=== PATIENT | female | born 1950 | race Caucasian/White ===

== ENCOUNTER → 2019-06-06 17:30 | Outpatient (CLI) | payer MEDICARE, BC, OTHER, SELFPAY ==
--- NOTE | 2019-06-06 | DI.MRI.S_ITS ---
PROCEDURE: MR LUMBAR SPINE WO CON INDICATIONS: Posterior right leg radicular pain TECHNIQUE: Noncontrast sagittal T1 spin echo and T2 fast echo, sagittal STIR, axial T1 and T2 fast spin echo through the lumbar spine. In cases with scoliosis, additional coronal T2 fast spin echo may be performed. COMPARISON: [facility] [place], [place], XR LUMBAR SPINE WITH OLBIQUES PLUS FLEXION EXTENSION, 05/31/2019, 10:02. FINDINGS: Image quality: Excellent. Alignment and Curvature: There is normal bony alignment. Bone Marrow: Marrow is of normal overall signal. No acute vertebral body compression fractures. Spinal Cord: Conus medullaris terminates at the T12-L1 disc level. Visualized cord demonstrates normal signal and size. Paraspinous Soft Tissues: No paravertebral masses. T12-L1: Loss of disc signal and slight loss of disc height. Mild, diffuse disc bulge. No central stenosis. No neural foraminal narrowing. No neural compression. L1-L2: Normal appearance. L2-L3: Normal appearance. L3-L4: Loss of the signal. Mild diffuse disc bulge. Mild bilateral facet hypertrophy. No central stenosis. No neural foraminal narrowing. No neural compression. L4-L5: Loss of the signal. Mild, diffuse disc bulge. Mild bilateral facet hypertrophy. No central stenosis. No neural foraminal narrowing. No neural compression. L5-S1: Loss of the signal. Mild, diffuse disc bulge. Mild bilateral facet hypertrophy. No central stenosis. No neural foraminal narrowing. No neural compression. Fissure noted in the posterior annulus. IMPRESSION: 1. Multilevel degenerative disc disease. 2. Multilevel facet arthropathy. 3. No central stenosis. 4. No neural foraminal narrowing. 5. No neural compression. 6. L5-S1 disc annulus fissure Dictated by: Brittny Moody MD, PhD on 06/07/2019 at 10:51 Approved by: Brittny Moody MD, PhD on 06/07/2019 at 10:59
== END ==
PROVIDERS: Visit Provider Physical Medicine & Rehabilitation
DX: M54.5 Low back pain (principal); M51.16 Intervertebral disc disorders with radiculopathy, lumbar region
CPT/HCPCS: 72148

== ENCOUNTER 2021-03-19 09:45 | Outpatient (RCR) | payer MEDICARE, BC, OTHER, SELFPAY ==
--- NOTE | 2021-01-02 12:18 | PT.OIE ---
Current Diagnoses Spondylosis without myelopathy or radiculopathy, lumbar region (01/07/21) Radiculopathy, lumbar region (01/07/21) Visit Care Team Role Provider Type Kateryna Courtney PA-C Primary Care Provider Non-Staff Specialty: Medical Address: [address], [place], [address] Email: Ruben Wilks MD Attending Provider Physician Referring Provider Specialty: Orthopedics Address: [address] [place] [address], [id number] Email: [email or web address] Physical Therapy Initial Evaluation PT-OP-A Visit Information Start: 01/05/21 07:59 Freq: Status: Active Protocol: Document 01/02/21 15:15 HH (Rec: 01/05/21 08:04 HH [email or web address]) Out-Patient Physical Therapy Visit Information Visit Information Visit Type Initial Evaluation Visit Start Time 15:15 Visit Stop Time 16:00 Total Visit Minutes 45 Visit Number 08/12 Number of ORGANIZATIONAL PSYCHOLOGIST Visits 0 Evaluation Information Evaluation Date 01/02/21 Precautions Precautions Osteopenia depression PT-OP-B Current Condition Start: 01/05/21 07:59 Freq: Status: Active Protocol: Document 01/02/21 15:15 HH (Rec: 01/05/21 08:04 HH [email or web address]) Current Condition History of Current Condition Onset Date >2 years ago Current Complaints chronic LBP, radiating R posterior leg pain, difficulty with acitvitiy. History of Current Condition Danette is a 70 yo female here for her chronic LBP with radiating R posterior leg pain started 2 years ago. LBP= 3, R posterior leg pain =4 which mostly gets worse with activity. Walking a couple miles tends to aggravate her pain badly the next day. Recovering from a bend over position/ sit <>stand also bother her. She also noticed she has been putting more weight on L LE while ambulating as well. Pt had X- ray at her lumbar in 2019 which shows multilevel degenerative disc disease, multilevel facet arthropathy and L5-S1 disc annulus fissure . She attempted a course of PT at [facility] but she stated it only helps mangaging her symptoms slightly. She recalled she mostly did core stabilization exercises there. Prior Treatments and Tests 06/07/2019 lumbar x-ray 1. Multilevel degenerative disc disease. 2. Multilevel facet arthropathy. 3. No central stenosis. 4. No neural foraminal narrowing. 5. No neural compression. 6. L5-S1 disc annulus fissure Personal Factors Other Personal Factors That May Effect depression Therapy/Recovery PT-OP-C Subjective Start: 01/05/21 07:59 Freq: Status: Active Protocol: Document 01/02/21 15:15 HH (Rec: 01/06/21 14:11 [email or web address]) OP-PT Pain Assessment Location R leg Pain Location Details posterior thigh and calf,. Intensity 4 Scale Used Numeric (0 - 10) Description Radiating Frequency Frequent Pain Aggravating Factors Standing,Walking Pain Alleviating Factors Inactivity LBP Pain Location Details L4-S1 region Intensity 3 Scale Used Numeric (0 - 10) Description Acute Frequency Frequent Pain Aggravating Factors Position,Activity,Exercise, Walking Pain Alleviating Factors Inactivity PT-OP-F Manual Assessment Start: 01/05/21 07:59 Freq: Status: Active Protocol: Document 01/02/21 15:15 HH (Rec: 01/07/21 12:18 [email or web address]) Manual Assessments Soft Tissue Assessment Soft Tissue Mobility Assessment hypertonicity at SIJ region and R glute max and pirformis. PT-OP-G Mobility & Gait Start: 01/05/21 07:59 Freq: Status: Active Protocol: Document 01/02/21 15:15 HH (Rec: 01/07/21 12:18 [email or web address]) OP Gait Assessment Comments Gait Comments dec stance phase on RLE, mild trendelenburg sign with L hip drop during R stance phase. Stair Climbing Evaluation Comments Stair Climbing Comments step over pattern with 1UE support to ascend ; step to pattern with 1 UE support to descend PT-OP-H Neuro Start: 01/05/21 07:59 Freq: Status: Active Protocol: Document 01/02/21 15:15 HH (Rec: 01/07/21 12:18 [email or web address]) Sensation Evaluation Gross Sensation Gross Sensation WNL Deep Tendon Reflex & Clonus Assessment Deep Tendon Reflex Bilateral Achilles Deep Tendon Reflex 2+ Normal Bilateral Patellar Deep Tendon Reflex 2+ Normal PT-OP-K Range of Motion Start: 01/05/21 07:59 Freq: Status: Active Protocol: Document 01/02/21 15:15 HH (Rec: 01/07/21 12:18 [email or web address]) Lumbar Spine Range of Motion Lumbar Spine Active Degrees Comments toe touch test= hands on floor , lack of lumbar segmental flexion SB to R= 19 with stretching sensation at R L4L5 region SB to L= 19 with stretching sensation at R L4L5 region extension= shoulders clear heels, pressure discomfort at lumbar R quadrant test= significant pain at R L4L5 region L quadrant test= -ve Hip Goniometric Range of Motion Hip Right Active Straight Leg Raise 90 Comments slight radiating posterior thigh pain with ASLR Left Active Straight Leg Raise 90 PT-OP-L Special Tests Start: 01/05/21 07:59 Freq: Status: Active Protocol: Document 01/02/21 15:15 HH (Rec: 01/07/21 12:18 [email or web address]) Special Tests Lumbar Spine Special Tests R quadrant test Test Results +ve R Comments radiating calf pain Slump Test Results +ve R Comments radiating calf pain Hip Special Tests Straight Leg Raise Test Results +ve R Comments radiating calf pain PT-OP-M Strength Start: 01/05/21 07:59 Freq: Status: Active Protocol: Document 01/02/21 15:15 HH (Rec: 01/07/21 12:18 [email or web address]) Hip Strength Hip Manual Muscle Testing Right Flexion (L2) 4 Good Extension (S1) 4 Good Abduction 4- Good- Adduction 4+ Good+ Left Flexion (L2) 4+ Good+ Extension (S1) 4+ Good+ Abduction 4+ Good+ Adduction 4+ Good+ Knee Strength Knee Manual Muscle Testing Right Flexion (S2) 5 Normal Extension (L3) 5 Normal Left Flexion (S2) 5 Normal Extension (L3) 5 Normal PT-OP-Q Treatments Start: 01/05/21 07:59 Freq: Status: Active Protocol: Document 01/02/21 15:15 HH (Rec: 01/07/21 12:18 [email or web address]) Therapeutic Exercises Supine Exercises piriformis stretch Side right Reps/Minutes 15 sec x 5 Comments for hEP PT-OP-T Assessment and Plan Start: 01/05/21 07:59 Freq: Status: Active Protocol: Document 01/02/21 15:15 HH (Rec: 01/07/21 12:18 HH [email or web address]) Physical Therapy Assessment Rehab Potential Rehabilitation Potential Good Evaluation Complexity Number of Personal Factors/Comorbidities 1-2 Number of Body Systems Impaired 1-2 Clinical Presentation at Evaluation Stable Impairments Impairments Activity Tolerance,Balance, Functional Activities, Functional Mobility,Gait,Pain, Posture,ROM,Soft Tissue Mobility,Strength,Transfers Goals activity tolerance. Impairment unable to tolerate prolonged walking Short Term Goal (STG) pt will show improved trunk staiblization, strenght which allows her to tolerate > 1mile of walking with pain no more than 3. STG Duration 5 weeks Glass Pulverizer Equipment Operator Goal (LTG) pt will show improved trunk staiblization, strenght which allows her to tolerate > 3mile of walking with pain no more than 2. LTG Duration 10 weeks radiating pain Impairment pt has radiating posterior leg pain Short Term Goal (STG) pt will not show radiating pain with slump test and sciatic nerve glide ex. STG Duration 5 weeks Glass Pulverizer Equipment Operator Goal (LTG) pt will show improve neural flexibility so she will not experience any radiating pain anymore LTG Duration 10 weeks Owestry Impairment pt scores 26 on Owestry Short Term Goal (STG) pt will show improved mobility and strength to score <20 on Owestry STG Duration 5 weeks Fdc Goal (LTG) pt will show improved mobility and strength to score <15 on Owestry LTG Duration 10 weeks Assessment Summary Assessment Danette is a 70 yo female here for her chronic LBP with radiating posterior leg pain started approx 2 years ago. Upon assessment, pt presents signs DJD at facet joint and lumbar radiculopathy for L5-S1 region. Her pain was reproduced with slump test, R quadrant test and ASLR. Combination of extension and R rotation tend to aggravate her symptoms. There's no sensation loss or obvious weakness noted but she does have a trendelenburg sign during amb. Pt will benefit from skilled therapy to focus on flexion based approach, increasing sciatic nerve neural flexibility and R hip strength, which will improve her gait stability, activity tolerance and overall pain. Physical Therapy Plan Frequency and Duration Frequency of Treatment 1-2x/wk Duration of Treatment 10 weeks Plan of Care Start Date 01/02/21 Plan of Care End Date 03/23/21 Therapeutic Interventions Therapeutic Interventions Aquatic Therapy,Balance Training,Gait Training,Home Exercise Program,Joint Mobilizations,Manual Therapy, Neuromuscular Re-education, Patient/Caregiver Education, Self-Care/Home Management,Soft Tissue Mobilization,Taping, Therapeutic Activities, Therapeutic Exercises Modalities Cold Pack/Ice Massage,Electric Stimulation,Hot Packs, Infrared Therapy,Traction- Mechanical,Ultrasound Next Visit Focus/Plan Next Note Type Treatment Note Next Visit Plan review pirirfomisn nerve glide knee to chest
--- NOTE | 2021-01-02 12:19 | PT.OPPOC ---
Physical, Occupational & Speech Therapy At [facility] Current Diagnoses Spondylosis without myelopathy or radiculopathy, lumbar region (01/07/21) Radiculopathy, lumbar region (01/07/21) Visit Care Team Role Provider Type Kateryna Courtney PA-C Primary Care Provider Non-Staff Specialty: Medical Address: [address] [place] [address] [address], [place], [address] Email: Ruben Wilks MD Attending Provider Physician Referring Provider Specialty: Orthopedics Address: [address] [place] [address], [place], [address] Email: [email or web address] Plan Of Care PT-OP-T Assessment and Plan Start: 01/05/21 07:59 Freq: Status: Active Protocol: Document 01/02/21 15:15 (Rec: 01/07/21 12:18 [email or web address]) Physical Therapy Assessment Rehab Potential Rehabilitation Potential Good Evaluation Complexity Number of Personal Factors/Comorbidities 1-2 Number of Body Systems Impaired 1-2 Clinical Presentation at Evaluation Stable Impairments Impairments Activity Tolerance,Balance, Functional Activities, Functional Mobility,Gait,Pain, Posture,ROM,Soft Tissue Mobility,Strength,Transfers Goals activity tolerance. Impairment unable to tolerate prolonged walking Short Term Goal (STG) pt will show improved trunk staiblization, strenght which allows her to tolerate > 1mile of walking with pain no more than 3. STG Duration 5 weeks Pull Socket Assembler Goal (LTG) pt will show improved trunk staiblization, strenght which allows her to tolerate > 3mile of walking with pain no more than 2. LTG Duration 10 weeks radiating pain Impairment pt has radiating posterior leg pain Short Term Goal (STG) pt will not show radiating pain with slump test and sciatic nerve glide ex. STG Duration 5 weeks Longterm Goal (LTG) pt will show improve neural flexibility so she will not experience any radiating pain anymore LTG Duration 10 weeks Owestry Impairment pt scores 26 on Owestry Short Term Goal (STG) pt will show improved mobility and strength to score <20 on Owestry STG Duration 5 weeks Longterm Goal (LTG) pt will show improved mobility and strength to score <15 on Owestry LTG Duration 10 weeks Assessment Summary Assessment Danette is a 70 yo female here for her chronic LBP with radiating posterior leg pain started approx 2 years ago. Upon assessment, pt presents signs DJD at facet joint and lumbar radiculopathy for L5-S1 region. Her pain was reproduced with slump test, R quadrant test and ASLR. Combination of extension and R rotation tend to aggravate her symptoms. There's no sensation loss or obvious weakness noted but she does have a trendelenburg sign during amb. Pt will benefit from skilled therapy to focus on flexion based approach, increasing sciatic nerve neural flexibility and R hip strength, which will improve her gait stability, activity tolerance and overall pain. Physical Therapy Plan Frequency and Duration Frequency of Treatment 1-2x/wk Duration of Treatment 10 weeks Plan of Care Start Date 01/02/21 Plan of Care End Date 03/23/21 Therapeutic Interventions Therapeutic Interventions Aquatic Therapy,Balance Training,Gait Training,Home Exercise Program,Joint Mobilizations,Manual Therapy, Neuromuscular Re-education, Patient/Caregiver Education, Self-Care/Home Management,Soft Tissue Mobilization,Taping, Therapeutic Activities, Therapeutic Exercises Modalities Cold Pack/Ice Massage,Electric Stimulation,Hot Packs, Infrared Therapy,Traction- Mechanical,Ultrasound Next Visit Focus/Plan Next Note Type Treatment Note Next Visit Plan review pirirfomisn nerve glide knee to chest Plan of Care Dates Plan of Care Start Date 01/02/21 Plan of Care End Date 03/23/21 Electronically Signed by: Katy Arellano PT 01/07/21 [id number] Please Sign and Return: I have reviewed this Plan of Care and certify that the skilled therapy services above are required to meet the patient?s needs. Physician Signature Date Printed Name and Credentials Clinical Instructor Signature Printed Name and Credentials
--- NOTE | 2021-01-07 16:26 | PT.OTN ---
Current Diagnoses Spondylosis without myelopathy or radiculopathy, lumbar region (01/07/21) Radiculopathy, lumbar region (01/07/21) Physical Therapy Treatment Note PT-OP-A Visit Information Start: 01/05/21 07:59 Freq: Status: Active Protocol: Document 01/07/21 16:21 HH (Rec: 01/07/21 16:26 HH [email or web address]) Out-Patient Physical Therapy Visit Information Visit Information Visit Type Treatment Note Visit Start Time 09:45 Visit Stop Time 10:29 Total Visit Minutes 44 Visit Number 09/12 Number of RN STAFF Visits 0 PT-OP-B Current Condition Start: 01/05/21 07:59 Freq: Status: Active Protocol: Document 01/02/21 15:15 HH (Rec: 01/05/21 08:04 HH [email or web address]) Current Condition History of Current Condition Onset Date >2 years ago Current Complaints chronic LBP, radiating R posterior leg pain, difficulty with acitvitiy. History of Current Condition Danette is a 70 yo female here for her chronic LBP with radiating R posterior leg pain started 2 years ago. LBP= 3, R posterior leg pain =4 which mostly gets worse with activity. Walking a couple miles tends to aggravate her pain badly the next day. Recovering from a bend over position/ sit <>stand also bother her. She also noticed she has been putting more weight on L LE while ambulating as well. Pt had X- ray at her lumbar in 2018 which shows multilevel degenerative disc disease, multilevel facet arthropathy and L5-S1 disc annulus fissure . She attempted a course of PT at [facility] [place] but she stated it only helps mangaging her symptoms slightly. She recalled she mostly did core stabilization exercises there. Prior Treatments and Tests 06/07/2019 lumbar x-ray 1. Multilevel degenerative disc disease. 2. Multilevel facet arthropathy. 3. No central stenosis. 4. No neural foraminal narrowing. 5. No neural compression. 6. L5-S1 disc annulus fissure Personal Factors Other Personal Factors That May Effect depression Therapy/Recovery PT-OP-C Subjective Start: 01/05/21 07:59 Freq: Status: Active Protocol: Document 01/07/21 16:21 HH (Rec: 01/07/21 16:26 [email or web address]) OP-PT Subjective Patient Comments Patient Comments The hip stretches has been helping so far. Patient Reported Progress Improving PT-OP-F Manual Assessment Start: 01/05/21 07:59 Freq: Status: Active Protocol: Document 01/02/21 15:15 HH (Rec: 01/07/21 12:18 [email or web address]) Manual Assessments Soft Tissue Assessment Soft Tissue Mobility Assessment hypertonicity at SIJ region and R glute max and pirformis. PT-OP-G Mobility & Gait Start: 01/05/21 07:59 Freq: Status: Active Protocol: Document 01/02/21 15:15 HH (Rec: 01/07/21 12:18 [email or web address]) OP Gait Assessment Comments Gait Comments dec stance phase on RLE, mild trendelenburg sign with L hip drop during R stance phase. Stair Climbing Evaluation Comments Stair Climbing Comments step over pattern with 1UE support to ascend ; step to pattern with 1 UE support to descend PT-OP-H Neuro Start: 01/05/21 07:59 Freq: Status: Active Protocol: Document 01/02/21 15:15 HH (Rec: 01/07/21 12:18 [email or web address]) Sensation Evaluation Gross Sensation Gross Sensation WNL Deep Tendon Reflex & Clonus Assessment Deep Tendon Reflex Bilateral Achilles Deep Tendon Reflex 2+ Normal Bilateral Patellar Deep Tendon Reflex 2+ Normal PT-OP-K Range of Motion Start: 01/05/21 07:59 Freq: Status: Active Protocol: Document 01/02/21 15:15 HH (Rec: 01/07/21 12:18 [email or web address]) Lumbar Spine Range of Motion Lumbar Spine Active Degrees Comments toe touch test= hands on floor , lack of lumbar segmental flexion SB to R= 19 with stretching sensation at R L4L5 region SB to L= 19 with stretching sensation at R L4L5 region extension= shoulders clear heels, pressure discomfort at lumbar R quadrant test= significant pain at R L4L5 region L quadrant test= -ve Hip Goniometric Range of Motion Hip Right Active Straight Leg Raise 90 Comments slight radiating posterior thigh pain with ASLR Left Active Straight Leg Raise 90 PT-OP-L Special Tests Start: 01/05/21 07:59 Freq: Status: Active Protocol: Document 01/02/21 15:15 HH (Rec: 01/07/21 12:18 [email or web address]) Special Tests Lumbar Spine Special Tests R quadrant test Test Results +ve R Comments radiating calf pain Slump Test Results +ve R Comments radiating calf pain Hip Special Tests Straight Leg Raise Test Results +ve R Comments radiating calf pain PT-OP-M Strength Start: 01/05/21 07:59 Freq: Status: Active Protocol: Document 01/02/21 15:15 HH (Rec: 01/07/21 12:18 [email or web address]) Hip Strength Hip Manual Muscle Testing Right Flexion (L2) 4 Good Extension (S1) 4 Good Abduction 4- Good- Adduction 4+ Good+ Left Flexion (L2) 4+ Good+ Extension (S1) 4+ Good+ Abduction 4+ Good+ Adduction 4+ Good+ Knee Strength Knee Manual Muscle Testing Right Flexion (S2) 5 Normal Extension (L3) 5 Normal Left Flexion (S2) 5 Normal Extension (L3) 5 Normal PT-OP-Q Treatments Start: 01/05/21 07:59 Freq: Status: Active Protocol: Document 01/07/21 16:21 HH (Rec: 01/07/21 16:26 [email or web address]) Therapeutic Exercises Supine Exercises knee to chest Side bilateral Reps/Minutes 15 sec hold x5 Comments for HEP sciatic nerve glide Supine Exercise Name with knee extension and ankle DF Side right Reps/Minutes 10 x2 Comments for HEP, with posterior thigh pain initially piriformis stretch Side right Reps/Minutes 15 sec x 5 Comments for hEP Sitting Exercises trunk flexion Sitting Exercise Name lumbar flexion stretch, Reps/Minutes 15 sec hold x5 Comments for HEP Manual Therapy Treatment Soft Tissue Mobilization R piriformis Mobilization Type Myofascial Release,Sustained Pressure,Trigger Point Release Intensity/Depth Moderate Body Position Sidelying Comments significant tenderness noted at muscle belly. PT-OP-T Assessment and Plan Start: 01/05/21 07:59 Freq: Status: Active Protocol: Document 01/07/21 16:21 (Rec: 01/07/21 16:26 [email or web address]) Physical Therapy Assessment Goals activity tolerance. Impairment unable to tolerate prolonged walking Short Term Goal (STG) pt will show improved trunk staiblization, strenght which allows her to tolerate > 1mile of walking with pain no more than 3. STG Duration 5 weeks Fpc Goal (LTG) pt will show improved trunk staiblization, strenght which allows her to tolerate > 3mile of walking with pain no more than 2. LTG Duration 10 weeks radiating pain Impairment pt has radiating posterior leg pain Short Term Goal (STG) pt will not show radiating pain with slump test and sciatic nerve glide ex. STG Duration 5 weeks Fpc Goal (LTG) pt will show improve neural flexibility so she will not experience any radiating pain anymore LTG Duration 10 weeks Owestry Impairment pt scores 26 on Owestry Short Term Goal (STG) pt will show improved mobility and strength to score <20 on Owestry STG Duration 5 weeks Fpc Goal (LTG) pt will show improved mobility and strength to score <15 on Owestry LTG Duration 10 weeks Assessment Summary Assessment Introduced lumbar flexion based therex to pt and pt responds very well. She overall has poor neural flexibility (sciatic nerve) but symptoms decreases with repetitions. Will assess her tolerance next visit. Physical Therapy Plan Frequency and Duration Frequency of Treatment 1-2x/wk Duration of Treatment 10 weeks Plan of Care Start Date 01/02/21 Plan of Care End Date 03/23/21 Therapeutic Interventions Therapeutic Interventions Aquatic Therapy,Balance Training,Gait Training,Home Exercise Program,Joint Mobilizations,Manual Therapy, Neuromuscular Re-education, Patient/Caregiver Education, Self-Care/Home Management,Soft Tissue Mobilization,Taping, Therapeutic Activities, Therapeutic Exercises Modalities Cold Pack/Ice Massage,Electric Stimulation,Hot Packs, Infrared Therapy,Traction- Mechanical,Ultrasound Next Visit Focus/Plan Next Note Type Treatment Note Next Visit Plan review irfomisn nerve glide knee to chest
--- NOTE | 2021-01-09 10:27 | PT.OTN ---
Current Diagnoses Spondylosis without myelopathy or radiculopathy, lumbar region (01/09/21) Radiculopathy, lumbar region (01/09/21) Physical Therapy Treatment Note PT-OP-A Visit Information Start: 01/05/21 07:59 Freq: Status: Active Protocol: Document 01/09/21 09:43 HH (Rec: 01/09/21 10:27 [id number]) Out-Patient Physical Therapy Visit Information Visit Information Visit Type Treatment Note Visit Start Time 09:45 Visit Stop Time 10:30 Total Visit Minutes 45 Visit Number 3/ Number of STONE RUBBER Visits 0 PT-OP-B Current Condition Start: 01/05/21 07:59 Freq: Status: Active Protocol: Document 01/02/21 15:15 HH (Rec: 01/05/21 08:04 HH [email or web address]) Current Condition History of Current Condition Onset Date >2 years ago Current Complaints chronic LBP, radiating R posterior leg pain, difficulty with acitvitiy. History of Current Condition Danette is a 70 yo female here for her chronic LBP with radiating R posterior leg pain started 2 years ago. LBP= 3, R posterior leg pain =4 which mostly gets worse with activity. Walking a couple miles tends to aggravate her pain badly the next day. Recovering from a bend over position/ sit <>stand also bother her. She also noticed she has been putting more weight on L LE while ambulating as well. Pt had X- ray at her lumbar in 2018 which shows multilevel degenerative disc disease, multilevel facet arthropathy and L5-S1 disc annulus fissure . She attempted a course of PT at [facility] but she stated it only helps mangaging her symptoms slightly. She recalled she mostly did core stabilization exercises there. Prior Treatments and Tests 06/07/2019 lumbar x-ray 1. Multilevel degenerative disc disease. 2. Multilevel facet arthropathy. 3. No central stenosis. 4. No neural foraminal narrowing. 5. No neural compression. 6. L5-S1 disc annulus fissure Personal Factors Other Personal Factors That May Effect depression Therapy/Recovery PT-OP-C Subjective Start: 01/05/21 07:59 Freq: Status: Active Protocol: Document 01/09/21 09:43 HH (Rec: 01/09/21 10:27 [id number]) OP-PT Subjective Patient Comments Patient Comments I was on my feet for a long time yesterday because i felt really good after last time so i tested myself. All stretches feel good so far. I also have less of a shooting pain too Patient Reported Progress Improving PT-OP-F Manual Assessment Start: 01/05/21 07:59 Freq: Status: Active Protocol: Document 01/02/21 15:15 HH (Rec: 01/07/21 12:18 HH [email or web address]) Manual Assessments Soft Tissue Assessment Soft Tissue Mobility Assessment hypertonicity at SIJ region and R glute max and pirformis. PT-OP-G Mobility & Gait Start: 01/05/21 07:59 Freq: Status: Active Protocol: Document 01/02/21 15:15 HH (Rec: 01/07/21 12:18 HH [email or web address]) OP Gait Assessment Comments Gait Comments dec stance phase on RLE, mild trendelenburg sign with L hip drop during R stance phase. Stair Climbing Evaluation Comments Stair Climbing Comments step over pattern with 1UE support to ascend ; step to pattern with 1 UE support to descend PT-OP-H Neuro Start: 01/05/21 07:59 Freq: Status: Active Protocol: Document 01/02/21 15:15 HH (Rec: 01/07/21 12:18 HH [email or web address]) Sensation Evaluation Gross Sensation Gross Sensation WNL Deep Tendon Reflex & Clonus Assessment Deep Tendon Reflex Bilateral Achilles Deep Tendon Reflex 2+ Normal Bilateral Patellar Deep Tendon Reflex 2+ Normal PT-OP-K Range of Motion Start: 01/05/21 07:59 Freq: Status: Active Protocol: Document 01/02/21 15:15 HH (Rec: 01/07/21 12:18 HH [email or web address]) Lumbar Spine Range of Motion Lumbar Spine Active Degrees Comments toe touch test= hands on floor , lack of lumbar segmental flexion SB to R= 19 with stretching sensation at R L4L5 region SB to L= 19 with stretching sensation at R L4L5 region extension= shoulders clear heels, pressure discomfort at lumbar R quadrant test= significant pain at R L4L5 region L quadrant test= -ve Hip Goniometric Range of Motion Hip Right Active Straight Leg Raise 90 Comments slight radiating posterior thigh pain with ASLR Left Active Straight Leg Raise 90 PT-OP-L Special Tests Start: 01/05/21 07:59 Freq: Status: Active Protocol: Document 01/02/21 15:15 HH (Rec: 01/07/21 12:18 [email or web address]) Special Tests Lumbar Spine Special Tests R quadrant test Test Results +ve R Comments radiating calf pain Slump Test Results +ve R Comments radiating calf pain Hip Special Tests Straight Leg Raise Test Results +ve R Comments radiating calf pain PT-OP-M Strength Start: 01/05/21 07:59 Freq: Status: Active Protocol: Document 01/02/21 15:15 HH (Rec: 01/07/21 12:18 [email or web address]) Hip Strength Hip Manual Muscle Testing Right Flexion (L2) 4 Good Extension (S1) 4 Good Abduction 4- Good- Adduction 4+ Good+ Left Flexion (L2) 4+ Good+ Extension (S1) 4+ Good+ Abduction 4+ Good+ Adduction 4+ Good+ Knee Strength Knee Manual Muscle Testing Right Flexion (S2) 5 Normal Extension (L3) 5 Normal Left Flexion (S2) 5 Normal Extension (L3) 5 Normal PT-OP-Q Treatments Start: 01/05/21 07:59 Freq: Status: Active Protocol: Document 01/09/21 09:43 HH (Rec: 01/09/21 10:27 [id number]) Therapeutic Exercises Supine Exercises knee to chest Side bilateral Reps/Minutes 15 sec hold x5 sciatic nerve glide Supine Exercise Name with knee extension and ankle DF Side right Reps/Minutes 10 x2 Comments pulling sensation noted. piriformis stretch Side right Reps/Minutes 15 sec x 5 Comments for hEP Sidelying Exercises clamshell Side bilateral Reps/Minutes 8x2 Comments for HEP Sitting Exercises trunk flexion Sitting Exercise Name lumbar flexion stretch, Reps/Minutes 15 sec hold x5 Comments for HEP PT-OP-T Assessment and Plan Start: 01/05/21 07:59 Freq: Status: Active Protocol: Document 01/09/21 09:43 HH (Rec: 01/09/21 10:27 [id number]) Physical Therapy Assessment Goals activity tolerance. Impairment unable to tolerate prolonged walking Short Term Goal (STG) pt will show improved trunk staiblization, strenght which allows her to tolerate > 1mile of walking with pain no more than 3. STG Duration 5 weeks [facility] Goal (LTG) pt will show improved trunk staiblization, strenght which allows her to tolerate > 3mile of walking with pain no more than 2. LTG Duration 10 weeks radiating pain Impairment pt has radiating posterior leg pain Short Term Goal (STG) pt will not show radiating pain with slump test and sciatic nerve glide ex. STG Duration 5 weeks [employer] Goal (LTG) pt will show improve neural flexibility so she will not experience any radiating pain anymore LTG Duration 10 weeks Owestry Impairment pt scores 26 on Owestry Short Term Goal (STG) pt will show improved mobility and strength to score <20 on Owestry STG Duration 5 weeks [employer] Communication Coordinator Goal (LTG) pt will show improved mobility and strength to score <15 on Owestry LTG Duration 10 weeks Assessment Summary Assessment Pt reports improved radiating pain since last visit. She also shows good understanding of her HEP. Added calmshell today and noticed significant weakness. Physical Therapy Plan Frequency and Duration Frequency of Treatment 1-2x/wk Duration of Treatment 10 weeks Plan of Care Start Date 01/02/21 Plan of Care End Date 03/23/21 Therapeutic Interventions Therapeutic Interventions Aquatic Therapy,Balance Training,Gait Training,Home Exercise Program,Joint Mobilizations,Manual Therapy, Neuromuscular Re-education, Patient/Caregiver Education, Self-Care/Home Management,Soft Tissue Mobilization,Taping, Therapeutic Activities, Therapeutic Exercises Modalities Cold Pack/Ice Massage,Electric Stimulation,Hot Packs, Infrared Therapy,Traction- Mechanical,Ultrasound Next Visit Focus/Plan Next Note Type Treatment Note Next Visit Plan review jusn nerve glide knee to chest
--- NOTE | 2021-01-14 16:01 | PT.OTN ---
Current Diagnoses Spondylosis without myelopathy or radiculopathy, lumbar region (01/14/21) Radiculopathy, lumbar region (01/14/21) Physical Therapy Treatment Note PT-OP-A Visit Information Start: 01/05/21 07:59 Freq: Status: Active Protocol: Document 01/14/21 14:31 HH (Rec: 01/14/21 16:01 [id number]) Out-Patient Physical Therapy Visit Information Visit Information Visit Type Treatment Note Visit Start Time 15:16 Visit Stop Time 16:00 Total Visit Minutes 44 Visit Number 11/10 Number of ROUNDHOUSE WORKER Visits 0 PT-OP-B Current Condition Start: 01/05/21 07:59 Freq: Status: Active Protocol: Document 01/02/21 15:15 HH (Rec: 01/05/21 08:04 [email or web address]) Current Condition History of Current Condition Onset Date >2 years ago Current Complaints chronic LBP, radiating R posterior leg pain, difficulty with acitvitiy. History of Current Condition Danette is a 70 yo female here for her chronic LBP with radiating R posterior leg pain started 2 years ago. LBP= 3, R posterior leg pain =4 which mostly gets worse with activity. Walking a couple miles tends to aggravate her pain badly the next day. Recovering from a bend over position/ sit <>stand also bother her. She also noticed she has been putting more weight on L LE while ambulating as well. Pt had X- ray at her lumbar in 2018 which shows multilevel degenerative disc disease, multilevel facet arthropathy and L5-S1 disc annulus fissure . She attempted a course of PT at [facility] but she stated it only helps mangaging her symptoms slightly. She recalled she mostly did core stabilization exercises there. Prior Treatments and Tests 06/07/2019 lumbar x-ray 1. Multilevel degenerative disc disease. 2. Multilevel facet arthropathy. 3. No central stenosis. 4. No neural foraminal narrowing. 5. No neural compression. 6. L5-S1 disc annulus fissure Personal Factors Other Personal Factors That May Effect depression Therapy/Recovery PT-OP-C Subjective Start: 01/05/21 07:59 Freq: Status: Active Protocol: Document 01/14/21 14:31 HH (Rec: 01/14/21 16:01 [id number]) OP-PT Subjective Patient Comments Patient Comments My hip is doing better. It still bugs me but not as much and long. getting up from sitting awhile still bothers me. Patient Reported Progress Improving PT-OP-F Manual Assessment Start: 01/05/21 07:59 Freq: Status: Active Protocol: Document 01/02/21 15:15 HH (Rec: 01/07/21 12:18 HH [email or web address]) Manual Assessments Soft Tissue Assessment Soft Tissue Mobility Assessment hypertonicity at SIJ region and R glute max and pirformis. PT-OP-G Mobility & Gait Start: 01/05/21 07:59 Freq: Status: Active Protocol: Document 01/02/21 15:15 HH (Rec: 01/07/21 12:18 HH [email or web address]) OP Gait Assessment Comments Gait Comments dec stance phase on RLE, mild trendelenburg sign with L hip drop during R stance phase. Stair Climbing Evaluation Comments Stair Climbing Comments step over pattern with 1UE support to ascend ; step to pattern with 1 UE support to descend PT-OP-H Neuro Start: 01/05/21 07:59 Freq: Status: Active Protocol: Document 01/02/21 15:15 HH (Rec: 01/07/21 12:18 HH [email or web address]) Sensation Evaluation Gross Sensation Gross Sensation WNL Deep Tendon Reflex & Clonus Assessment Deep Tendon Reflex Bilateral Achilles Deep Tendon Reflex 2+ Normal Bilateral Patellar Deep Tendon Reflex 2+ Normal PT-OP-K Range of Motion Start: 01/05/21 07:59 Freq: Status: Active Protocol: Document 01/02/21 15:15 HH (Rec: 01/07/21 12:18 [email or web address]) Lumbar Spine Range of Motion Lumbar Spine Active Degrees Comments toe touch test= hands on floor , lack of lumbar segmental flexion SB to R= 19 with stretching sensation at R L4L5 region SB to L= 19 with stretching sensation at R L4L5 region extension= shoulders clear heels, pressure discomfort at lumbar R quadrant test= significant pain at R L4L5 region L quadrant test= -ve Hip Goniometric Range of Motion Hip Right Active Straight Leg Raise 90 Comments slight radiating posterior thigh pain with ASLR Left Active Straight Leg Raise 90 PT-OP-L Special Tests Start: 01/05/21 07:59 Freq: Status: Active Protocol: Document 01/02/21 15:15 HH (Rec: 01/07/21 12:18 [email or web address]) Special Tests Lumbar Spine Special Tests R quadrant test Test Results +ve R Comments radiating calf pain Slump Test Results +ve R Comments radiating calf pain Hip Special Tests Straight Leg Raise Test Results +ve R Comments radiating calf pain PT-OP-M Strength Start: 01/05/21 07:59 Freq: Status: Active Protocol: Document 01/02/21 15:15 HH (Rec: 01/07/21 12:18 [email or web address]) Hip Strength Hip Manual Muscle Testing Right Flexion (L2) 4 Good Extension (S1) 4 Good Abduction 4- Good- Adduction 4+ Good+ Left Flexion (L2) 4+ Good+ Extension (S1) 4+ Good+ Abduction 4+ Good+ Adduction 4+ Good+ Knee Strength Knee Manual Muscle Testing Right Flexion (S2) 5 Normal Extension (L3) 5 Normal Left Flexion (S2) 5 Normal Extension (L3) 5 Normal PT-OP-Q Treatments Start: 01/05/21 07:59 Freq: Status: Active Protocol: Document 01/14/21 14:31 HH (Rec: 01/14/21 16:01 [id number]) Gym Equipment Shuttle Recovery SL squat Resistance 37# Shuttle Recovery Platform Stable Reps/Time pt noticed significant weakness on RLE Therapeutic Exercises Supine Exercises figure 4 stretch Reps/Minutes 10 sec x5 Comments with posterior lateral knee pain initially but reduce after sciatic nerve glide Supine Exercise Name with knee extension and ankle DF Side right Reps/Minutes 10 x2 Comments pulling sensation noted. piriformis stretch Side right Reps/Minutes 15 sec x 5 Comments for hEP Sidelying Exercises clamshell Side bilateral Reps/Minutes 8x2 Sitting Exercises trunk flexion Sitting Exercise Name lumbar flexion stretch, Reps/Minutes 15 sec hold x5 Comments for HEP Standing Exercises hip abd Side bilateral Reps/Minutes 8x2 Comments for HEP if she can tolerate Manual Therapy Treatment Soft Tissue Mobilization R piriformis Mobilization Type Myofascial Release,Sustained Pressure,Trigger Point Release Intensity/Depth Moderate Body Position Sidelying Comments significant tenderness noted at muscle belly. Joint Mobilizations traction Joint R hip Direction inferior Grade III Body Position Supine PT-OP-T Assessment and Plan Start: 01/05/21 07:59 Freq: Status: Active Protocol: Document 01/14/21 14:31 HH (Rec: 01/14/21 16:01 [id number]) Physical Therapy Assessment Goals activity tolerance. Impairment unable to tolerate prolonged walking Short Term Goal (STG) pt will show improved trunk staiblization, strenght which allows her to tolerate > 1mile of walking with pain no more than 3. STG Duration 5 weeks [facility] Goal (LTG) pt will show improved trunk staiblization, strenght which allows her to tolerate > 3mile of walking with pain no more than 2. LTG Duration 10 weeks radiating pain Impairment pt has radiating posterior leg pain Short Term Goal (STG) pt will not show radiating pain with slump test and sciatic nerve glide ex. STG Duration 5 weeks [facility] Goal (LTG) pt will show improve neural flexibility so she will not experience any radiating pain anymore LTG Duration 10 weeks Owestry Impairment pt scores 26 on Owestry Short Term Goal (STG) pt will show improved mobility and strength to score <20 on Owestry STG Duration 5 weeks [employer] Goal (LTG) pt will show improved mobility and strength to score <15 on Owestry LTG Duration 10 weeks Assessment Summary Assessment pt reports of reduced hip and posterior lateral knee pain but transfer is still painful. Continue to focus on hip stabilization and strnegthening ex today. She zulema session very well. (noticed figure 4 position somehwat triggered her posterior knee pain) Physical Therapy Plan Frequency and Duration Frequency of Treatment 1-2x/wk Duration of Treatment 10 weeks Plan of Care Start Date 01/02/21 Plan of Care End Date 03/23/21 Therapeutic Interventions Therapeutic Interventions Aquatic Therapy,Balance Training,Gait Training,Home Exercise Program,Joint Mobilizations,Manual Therapy, Neuromuscular Re-education, Patient/Caregiver Education, Self-Care/Home Management,Soft Tissue Mobilization,Taping, Therapeutic Activities, Therapeutic Exercises Modalities Cold Pack/Ice Massage,Electric Stimulation,Hot Packs, Infrared Therapy,Traction- Mechanical,Ultrasound Next Visit Focus/Plan Next Note Type Treatment Note Next Visit Plan review pirirfomisn nerve glide knee to chest
--- NOTE | 2021-01-16 11:26 | PT.OTN ---
Current Diagnoses Spondylosis without myelopathy or radiculopathy, lumbar region (01/16/21) Radiculopathy, lumbar region (01/16/21) Physical Therapy Treatment Note PT-OP-A Visit Information Start: 01/05/21 07:59 Freq: Status: Active Protocol: Document 01/16/21 09:41 HH (Rec: 01/16/21 11:25 HH [id number]) Out-Patient Physical Therapy Visit Information Visit Information Visit Type Treatment Note Visit Start Time 09:45 Visit Stop Time 10:30 Total Visit Minutes 44 Visit Number 11/10 Number of SILK OPENER Visits 0 PT-OP-B Current Condition Start: 01/05/21 07:59 Freq: Status: Active Protocol: Document 01/02/21 15:15 HH (Rec: 01/05/21 08:04 HH [email or web address]) Current Condition History of Current Condition Onset Date >2 years ago Current Complaints chronic LBP, radiating R posterior leg pain, difficulty with acitvitiy. History of Current Condition Danette is a 70 yo female here for her chronic LBP with radiating R posterior leg pain started 2 years ago. LBP= 3, R posterior leg pain =4 which mostly gets worse with activity. Walking a couple miles tends to aggravate her pain badly the next day. Recovering from a bend over position/ sit <>stand also bother her. She also noticed she has been putting more weight on L LE while ambulating as well. Pt had X- ray at her lumbar in 2018 which shows multilevel degenerative disc disease, multilevel facet arthropathy and L5-S1 disc annulus fissure . She attempted a course of PT at [facility] but she stated it only helps mangaging her symptoms slightly. She recalled she mostly did core stabilization exercises there. Prior Treatments and Tests 06/07/2019 lumbar x-ray 1. Multilevel degenerative disc disease. 2. Multilevel facet arthropathy. 3. No central stenosis. 4. No neural foraminal narrowing. 5. No neural compression. 6. L5-S1 disc annulus fissure Personal Factors Other Personal Factors That May Effect depression Therapy/Recovery PT-OP-C Subjective Start: 01/05/21 07:59 Freq: Status: Active Protocol: Document 01/16/21 09:41 HH (Rec: 01/16/21 11:25 HH [id number]) OP-PT Subjective Patient Comments Patient Comments I got a little bit sore from last time and it did go away. I walked 5000 steps and i woke up this morning which wasnt too bad. Patient Reported Progress Improving PT-OP-F Manual Assessment Start: 01/05/21 07:59 Freq: Status: Active Protocol: Document 01/02/21 15:15 HH (Rec: 01/07/21 12:18 HH [email or web address]) Manual Assessments Soft Tissue Assessment Soft Tissue Mobility Assessment hypertonicity at SIJ region and R glute max and pirformis. PT-OP-G Mobility & Gait Start: 01/05/21 07:59 Freq: Status: Active Protocol: Document 01/02/21 15:15 HH (Rec: 01/07/21 12:18 HH [email or web address]) OP Gait Assessment Comments Gait Comments dec stance phase on RLE, mild trendelenburg sign with L hip drop during R stance phase. Stair Climbing Evaluation Comments Stair Climbing Comments step over pattern with 1UE support to ascend ; step to pattern with 1 UE support to descend PT-OP-H Neuro Start: 01/05/21 07:59 Freq: Status: Active Protocol: Document 01/02/21 15:15 HH (Rec: 01/07/21 12:18 HH [email or web address]) Sensation Evaluation Gross Sensation Gross Sensation WNL Deep Tendon Reflex & Clonus Assessment Deep Tendon Reflex Bilateral Achilles Deep Tendon Reflex 2+ Normal Bilateral Patellar Deep Tendon Reflex 2+ Normal PT-OP-K Range of Motion Start: 01/05/21 07:59 Freq: Status: Active Protocol: Document 01/16/21 09:41 HH (Rec: 01/16/21 11:26 HH [id number]) Knee Goniometric Range of Motion Knee Left Knee ROM WFL Yes Patient Position Supine Flexion Active (degrees) 135 Hyper-Extension Active 3 Right Knee ROM WFL No Patient Position Supine Flexion Active (degrees) 125 Extension Active (degrees) 3 Comments pain at both end range PT-OP-L Special Tests Start: 01/05/21 07:59 Freq: Status: Active Protocol: Document 01/02/21 15:15 HH (Rec: 01/07/21 12:18 HH [email or web address]) Special Tests Lumbar Spine Special Tests R quadrant test Test Results +ve R Comments radiating calf pain Slump Test Results +ve R Comments radiating calf pain Hip Special Tests Straight Leg Raise Test Results +ve R Comments radiating calf pain PT-OP-M Strength Start: 01/05/21 07:59 Freq: Status: Active Protocol: Document 01/02/21 15:15 HH (Rec: 01/07/21 12:18 HH [email or web address]) Hip Strength Hip Manual Muscle Testing Right Flexion (L2) 4 Good Extension (S1) 4 Good Abduction 4- Good- Adduction 4+ Good+ Left Flexion (L2) 4+ Good+ Extension (S1) 4+ Good+ Abduction 4+ Good+ Adduction 4+ Good+ Knee Strength Knee Manual Muscle Testing Right Flexion (S2) 5 Normal Extension (L3) 5 Normal Left Flexion (S2) 5 Normal Extension (L3) 5 Normal PT-OP-Q Treatments Start: 01/05/21 07:59 Freq: Status: Active Protocol: Document 01/16/21 09:41 HH (Rec: 01/16/21 11:25 HH [id number]) Gym Equipment Shuttle Recovery SL squat Resistance 37# Shuttle Recovery Platform Stable Reps/Time pt noticed significant weakness on RLE Therapeutic Exercises Supine Exercises quad set Side right Equipment Used towel under R ankle Reps/Minutes 10 x2 Comments pain noted at end range mare stretch Supine Exercise Name for quad and hip flexors Side right Reps/Minutes 15 sec hold x Comments for HEP figure 4 stretch Reps/Minutes 10 sec x5 Comments with posterior lateral knee pain initially but reduce after Sidelying Exercises clamshell Side bilateral Reps/Minutes 8x2 Standing Exercises calf raises Side bilateral Reps/Minutes 10 x2 Manual Therapy Treatment Soft Tissue Mobilization HS Body Location R lateral hamstrings Mobilization Type Sustained Pressure,Trigger Point Release Intensity/Depth Moderate Body Position Prone Comments significant tenderness noted at distal lateral HS tendon R piriformis Mobilization Type Myofascial Release,Sustained Pressure,Trigger Point Release Intensity/Depth Moderate Body Position Sidelying Comments significant tenderness noted at muscle belly. Joint Mobilizations traction Joint R hip Direction inferior Grade III Body Position Supine PT-OP-T Assessment and Plan Start: 01/05/21 07:59 Freq: Status: Active Protocol: Document 01/16/21 09:41 HH (Rec: 01/16/21 11:25 HH [id number]) Physical Therapy Assessment Goals activity tolerance. Impairment unable to tolerate prolonged walking Short Term Goal (STG) pt will show improved trunk staiblization, strenght which allows her to tolerate > 1mile of walking with pain no more than 3. STG Duration 5 weeks Retirement Goal (LTG) pt will show improved trunk staiblization, strenght which allows her to tolerate > 3mile of walking with pain no more than 2. LTG Duration 10 weeks radiating pain Impairment pt has radiating posterior leg pain Short Term Goal (STG) pt will not show radiating pain with slump test and sciatic nerve glide ex. STG Duration 5 weeks [employer] Goal (LTG) pt will show improve neural flexibility so she will not experience any radiating pain anymore LTG Duration 10 weeks [employer] Impairment pt scores 26 on [employer] Short Term Goal (STG) pt will show improved mobility and strength to score <20 on [employer] STG Duration 5 weeks [employer] Goal (LTG) pt will show improved mobility and strength to score <15 on [employer]west[employer] LTG Duration 10 weeks Assessment Summary Assessment Pt wore shorts today and noticed she has moderate knee varus on RLE. Her pain is primarily located at lateral posterior knee joint which gets aggravated with increased WB. She shows limited ROM and pain at end range, and positive with varus test. I believe pt's pain is more likely from possible R knee OA than hip/lumbar spine involvement. Modified her HEP to be knee ROM focused. Physical Therapy Plan Frequency and Duration Frequency of Treatment 1-2x/wk Duration of Treatment 10 weeks Plan of Care Start Date 01/02/21 Plan of Care End Date 03/23/21 Therapeutic Interventions Therapeutic Interventions Aquatic Therapy,Balance Training,Gait Training,Home Exercise Program,Joint Mobilizations,Manual Therapy, Neuromuscular Re-education, Patient/Caregiver Education, Self-Care/Home Management,Soft Tissue Mobilization,Taping, Therapeutic Activities, Therapeutic Exercises Modalities Cold Pack/Ice Massage,Electric Stimulation,Hot Packs, Infrared Therapy,Traction- Mechanical,Ultrasound Next Visit Focus/Plan Next Note Type Treatment Note Next Visit Plan review pirirfomisn nerve glide knee to chest
--- NOTE | 2021-01-19 10:29 | PT.OTN ---
Current Diagnoses Spondylosis without myelopathy or radiculopathy, lumbar region (01/19/21) Radiculopathy, lumbar region (01/19/21) Physical Therapy Treatment Note PT-OP-A Visit Information Start: 01/05/21 07:59 Freq: Status: Active Protocol: Document 01/19/21 09:41 HH (Rec: 01/19/21 10:28 [id number]) Out-Patient Physical Therapy Visit Information Visit Information Visit Type Treatment Note Visit Start Time 09:37 Visit Stop Time 10:30 Total Visit Minutes 53 Visit Number 11/10 Number of [employer] Visits 0 PT-OP-B Current Condition Start: 01/05/21 07:59 Freq: Status: Active Protocol: Document 01/02/21 15:15 HH (Rec: 01/05/21 08:04 [email or web address]) Current Condition History of Current Condition Onset Date >2 years ago Current Complaints chronic LBP, radiating R posterior leg pain, difficulty with acitvitiy. History of Current Condition Danette is a 70 yo female here for her chronic LBP with radiating R posterior leg pain started 2 years ago. LBP= 3, R posterior leg pain =4 which mostly gets worse with activity. Walking a couple miles tends to aggravate her pain badly the next day. Recovering from a bend over position/ sit <>stand also bother her. She also noticed she has been putting more weight on L LE while ambulating as well. Pt had X- ray at her lumbar in 2018 which shows multilevel degenerative disc disease, multilevel facet arthropathy and L5-S1 disc annulus fissure . She attempted a course of PT at [facility] but she stated it only helps mangaging her symptoms slightly. She recalled she mostly did core stabilization exercises there. Prior Treatments and Tests 06/07/2019 lumbar x-ray 1. Multilevel degenerative disc disease. 2. Multilevel facet arthropathy. 3. No central stenosis. 4. No neural foraminal narrowing. 5. No neural compression. 6. L5-S1 disc annulus fissure Personal Factors Other Personal Factors That May Effect depression Therapy/Recovery PT-OP-C Subjective Start: 01/05/21 07:59 Freq: Status: Active Protocol: Document 01/19/21 09:41 HH (Rec: 01/19/21 10:28 [id number]) OP-PT Subjective Patient Comments Patient Comments my R knee seems to be better and easier to loosen up now. Patient Reported Progress Improving PT-OP-F Manual Assessment Start: 01/05/21 07:59 Freq: Status: Active Protocol: Document 01/02/21 15:15 HH (Rec: 01/07/21 12:18 HH [email or web address]) Manual Assessments Soft Tissue Assessment Soft Tissue Mobility Assessment hypertonicity at SIJ region and R glute max and pirformis. PT-OP-G Mobility & Gait Start: 01/05/21 07:59 Freq: Status: Active Protocol: Document 01/02/21 15:15 HH (Rec: 01/07/21 12:18 HH [email or web address]) OP Gait Assessment Comments Gait Comments dec stance phase on RLE, mild trendelenburg sign with L hip drop during R stance phase. Stair Climbing Evaluation Comments Stair Climbing Comments step over pattern with 1UE support to ascend ; step to pattern with 1 UE support to descend PT-OP-H Neuro Start: 01/05/21 07:59 Freq: Status: Active Protocol: Document 01/02/21 15:15 HH (Rec: 01/07/21 12:18 HH [email or web address]) Sensation Evaluation Gross Sensation Gross Sensation WNL Deep Tendon Reflex & Clonus Assessment Deep Tendon Reflex Bilateral Achilles Deep Tendon Reflex 2+ Normal Bilateral Patellar Deep Tendon Reflex 2+ Normal PT-OP-K Range of Motion Start: 01/05/21 07:59 Freq: Status: Active Protocol: Document 01/16/21 09:41 HH (Rec: 01/16/21 11:26 HH [id number]) Knee Goniometric Range of Motion Knee Left Knee ROM WFL Yes Patient Position Supine Flexion Active (degrees) 135 Hyper-Extension Active 3 Right Knee ROM WFL No Patient Position Supine Flexion Active (degrees) 125 Extension Active (degrees) 3 Comments pain at both end range PT-OP-L Special Tests Start: 01/05/21 07:59 Freq: Status: Active Protocol: Document 01/02/21 15:15 HH (Rec: 01/07/21 12:18 HH [email or web address]) Special Tests Lumbar Spine Special Tests R quadrant test Test Results +ve R Comments radiating calf pain Slump Test Results +ve R Comments radiating calf pain Hip Special Tests Straight Leg Raise Test Results +ve R Comments radiating calf pain PT-OP-M Strength Start: 01/05/21 07:59 Freq: Status: Active Protocol: Document 01/02/21 15:15 HH (Rec: 01/07/21 12:18 HH [email or web address]) Hip Strength Hip Manual Muscle Testing Right Flexion (L2) 4 Good Extension (S1) 4 Good Abduction 4- Good- Adduction 4+ Good+ Left Flexion (L2) 4+ Good+ Extension (S1) 4+ Good+ Abduction 4+ Good+ Adduction 4+ Good+ Knee Strength Knee Manual Muscle Testing Right Flexion (S2) 5 Normal Extension (L3) 5 Normal Left Flexion (S2) 5 Normal Extension (L3) 5 Normal PT-OP-Q Treatments Start: 01/05/21 07:59 Freq: Status: Active Protocol: Document 01/19/21 09:41 HH (Rec: 01/19/21 10:28 [id number]) Cardio Equipment Recumbent Bicycle Duration (Minutes) 8 Resistance 6 Seat Position 4 Gym Equipment Shuttle Recovery SL squat Resistance 37# Shuttle Recovery Platform Stable Reps/Time pressure at R knee, Therapeutic Exercises Supine Exercises heel slide Side right Equipment Used towel on surface Reps/Minutes 10x2 Comments full range encouraged. mare stretch Supine Exercise Name for quad and hip flexors Side right Reps/Minutes 15 sec hold x Comments pt shows good understanding figure 4 stretch Reps/Minutes 10 sec x5 Comments with posterior lateral knee pain initially but reduce after Standing Exercises calf raises Side bilateral Reps/Minutes 10 x3 Manual Therapy Treatment Soft Tissue Mobilization hip adductors Body Location R Mobilization Type Myofascial Release,Sustained Pressure,Trigger Point Release Intensity/Depth Moderate Body Position Hooklying Comments tenderness noted at muscle belly HS Body Location R lateral hamstrings Mobilization Type Sustained Pressure,Trigger Point Release Intensity/Depth Moderate Body Position Prone Comments significant tenderness noted at distal lateral HS tendon R piriformis Mobilization Type Myofascial Release,Sustained Pressure,Trigger Point Release Intensity/Depth Moderate Body Position Sidelying Comments reduced tenderness noted at muscle belly. PT-OP-T Assessment and Plan Start: 01/05/21 07:59 Freq: Status: Active Protocol: Document 01/19/21 09:41 HH (Rec: 01/19/21 10:28 [id number]) Physical Therapy Assessment Goals activity tolerance. Impairment unable to tolerate prolonged walking Short Term Goal (STG) pt will show improved trunk staiblization, strenght which allows her to tolerate > 1mile of walking with pain no more than 3. STG Duration 5 weeks [facility] Goal (LTG) pt will show improved trunk staiblization, strenght which allows her to tolerate > 3mile of walking with pain no more than 2. LTG Duration 10 weeks radiating pain Impairment pt has radiating posterior leg pain Short Term Goal (STG) pt will not show radiating pain with slump test and sciatic nerve glide ex. STG Duration 5 weeks [facility] Goal (LTG) pt will show improve neural flexibility so she will not experience any radiating pain anymore LTG Duration 10 weeks [employer] Impairment pt scores 26 on [employer] Short Term Goal (STG) pt will show improved mobility and strength to score <20 on [employer] STG Duration 5 weeks [facility] Goal (LTG) pt will show improved mobility and strength to score <15 on [employer] LTG Duration 10 weeks Assessment Summary Assessment this session includes biking, knee ROM stretching therex, and LE strengthening. Pt shows good understanding of current POC and rehab management of OA. Physical Therapy Plan Frequency and Duration Frequency of Treatment 1-2x/wk Duration of Treatment 10 weeks Plan of Care Start Date 01/02/21 Plan of Care End Date 03/23/21 Therapeutic Interventions Therapeutic Interventions Aquatic Therapy,Balance Training,Gait Training,Home Exercise Program,Joint Mobilizations,Manual Therapy, Neuromuscular Re-education, Patient/Caregiver Education, Self-Care/Home Management,Soft Tissue Mobilization,Taping, Therapeutic Activities, Therapeutic Exercises Modalities Cold Pack/Ice Massage,Electric Stimulation,Hot Packs, Infrared Therapy,Traction- Mechanical,Ultrasound Next Visit Focus/Plan Next Note Type Treatment Note Next Visit Plan review pirirfomisn nerve glide knee to chest
--- NOTE | 2021-01-28 14:35 | PT.OTN ---
Current Diagnoses Spondylosis without myelopathy or radiculopathy, lumbar region (01/28/21) Radiculopathy, lumbar region (01/28/21) Physical Therapy Treatment Note PT-OP-A Visit Information Start: 01/05/21 07:59 Freq: Status: Active Protocol: Document 01/28/21 13:49 HH (Rec: 01/28/21 14:35 [id number]) Out-Patient Physical Therapy Visit Information Visit Information Visit Type Treatment Note Visit Start Time 13:48 Visit Stop Time 14:30 Total Visit Minutes 42 Visit Number 12/10 Number of MAIN LINE STATION ENGINEER Visits 0 PT-OP-B Current Condition Start: 01/05/21 07:59 Freq: Status: Active Protocol: Document 01/02/21 15:15 HH (Rec: 01/05/21 08:04 HH [email or web address]) Current Condition History of Current Condition Onset Date >2 years ago Current Complaints chronic LBP, radiating R posterior leg pain, difficulty with acitvitiy. History of Current Condition Danette is a 70 yo female here for her chronic LBP with radiating R posterior leg pain started 2 years ago. LBP= 3, R posterior leg pain =4 which mostly gets worse with activity. Walking a couple miles tends to aggravate her pain badly the next day. Recovering from a bend over position/ sit <>stand also bother her. She also noticed she has been putting more weight on L LE while ambulating as well. Pt had X- ray at her lumbar in 2018 which shows multilevel degenerative disc disease, multilevel facet arthropathy and L5-S1 disc annulus fissure . She attempted a course of PT at [facility] but she stated it only helps mangaging her symptoms slightly. She recalled she mostly did core stabilization exercises there. Prior Treatments and Tests 06/07/2019 lumbar x-ray 1. Multilevel degenerative disc disease. 2. Multilevel facet arthropathy. 3. No central stenosis. 4. No neural foraminal narrowing. 5. No neural compression. 6. L5-S1 disc annulus fissure Personal Factors Other Personal Factors That May Effect depression Therapy/Recovery PT-OP-C Subjective Start: 01/05/21 07:59 Freq: Status: Active Protocol: Document 01/28/21 13:49 HH (Rec: 01/28/21 14:35 [id number]) OP-PT Subjective Patient Comments Patient Comments My leg is doing better since its not as stiff. I can get up easier after i sit for awhile . It still gives me some lateral knee pain. Jacquie been walking 3-5k steps and i did some gardening work and it didnt both me as much. Patient Reported Progress Improving PT-OP-F Manual Assessment Start: 01/05/21 07:59 Freq: Status: Active Protocol: Document 01/02/21 15:15 HH (Rec: 01/07/21 12:18 HH [email or web address]) Manual Assessments Soft Tissue Assessment Soft Tissue Mobility Assessment hypertonicity at SIJ region and R glute max and pirformis. PT-OP-G Mobility & Gait Start: 01/05/21 07:59 Freq: Status: Active Protocol: Document 01/02/21 15:15 HH (Rec: 01/07/21 12:18 HH [email or web address]) OP Gait Assessment Comments Gait Comments dec stance phase on RLE, mild trendelenburg sign with L hip drop during R stance phase. Stair Climbing Evaluation Comments Stair Climbing Comments step over pattern with 1UE support to ascend ; step to pattern with 1 UE support to descend PT-OP-H Neuro Start: 01/05/21 07:59 Freq: Status: Active Protocol: Document 01/02/21 15:15 HH (Rec: 01/07/21 12:18 HH [email or web address]) Sensation Evaluation Gross Sensation Gross Sensation WNL Deep Tendon Reflex & Clonus Assessment Deep Tendon Reflex Bilateral Achilles Deep Tendon Reflex 2+ Normal Bilateral Patellar Deep Tendon Reflex 2+ Normal PT-OP-K Range of Motion Start: 01/05/21 07:59 Freq: Status: Active Protocol: Document 01/16/21 09:41 HH (Rec: 01/16/21 11:26 HH [id number]) Knee Goniometric Range of Motion Knee Left Knee ROM WFL Yes Patient Position Supine Flexion Active (degrees) 135 Hyper-Extension Active 3 Right Knee ROM WFL No Patient Position Supine Flexion Active (degrees) 125 Extension Active (degrees) 3 Comments pain at both end range PT-OP-L Special Tests Start: 01/05/21 07:59 Freq: Status: Active Protocol: Document 01/02/21 15:15 HH (Rec: 01/07/21 12:18 HH [email or web address]) Special Tests Lumbar Spine Special Tests R quadrant test Test Results +ve R Comments radiating calf pain Slump Test Results +ve R Comments radiating calf pain Hip Special Tests Straight Leg Raise Test Results +ve R Comments radiating calf pain PT-OP-M Strength Start: 01/05/21 07:59 Freq: Status: Active Protocol: Document 01/02/21 15:15 HH (Rec: 01/07/21 12:18 HH [email or web address]) Hip Strength Hip Manual Muscle Testing Right Flexion (L2) 4 Good Extension (S1) 4 Good Abduction 4- Good- Adduction 4+ Good+ Left Flexion (L2) 4+ Good+ Extension (S1) 4+ Good+ Abduction 4+ Good+ Adduction 4+ Good+ Knee Strength Knee Manual Muscle Testing Right Flexion (S2) 5 Normal Extension (L3) 5 Normal Left Flexion (S2) 5 Normal Extension (L3) 5 Normal PT-OP-Q Treatments Start: 01/05/21 07:59 Freq: Status: Active Protocol: Document 01/28/21 13:49 HH (Rec: 01/28/21 14:35 HH [id number]) Cardio Equipment Recumbent Bicycle Duration (Minutes) 8 Resistance 6 Seat Position 3 Other 2.8 miles Gym Equipment Shuttle Recovery SL squat Resistance 37# Shuttle Recovery Platform Stable Reps/Time pressure at R knee, with ankle DF. Therapeutic Exercises Supine Exercises heel slide Supine Exercise Name full knee flexion and extension Side right Equipment Used towel on surface, gait belt Reps/Minutes 10x2 Comments full range encouraged. figure 4 stretch Reps/Minutes 10 sec x5 Comments with posterior lateral knee pain initially but reduce after Sitting Exercises knee flexion Side right Equipment Used level 3 band Reps/Minutes 10 x2 LAQ Side right Equipment Used 5 lbs ankle weight Reps/Minutes 10 x2 Manual Therapy Treatment Soft Tissue Mobilization R knee Body Location lateral knee joint line Mobilization Type Rolling,Strumming Intensity/Depth Moderate Body Position Hooklying hip adductors Body Location R Mobilization Type Myofascial Release,Sustained Pressure,Trigger Point Release Intensity/Depth Moderate Body Position Hooklying Comments tenderness noted at muscle belly PT-OP-T Assessment and Plan Start: 01/05/21 07:59 Freq: Status: Active Protocol: Document 01/28/21 13:49 HH (Rec: 01/28/21 14:35 HH [id number]) Physical Therapy Assessment Goals activity tolerance. Impairment unable to tolerate prolonged walking Short Term Goal (STG) pt will show improved trunk staiblization, strenght which allows her to tolerate > 1mile of walking with pain no more than 3. STG Duration 5 weeks Group Home Goal (LTG) pt will show improved trunk staiblization, strenght which allows her to tolerate > 3mile of walking with pain no more than 2. LTG Duration 10 weeks radiating pain Impairment pt has radiating posterior leg pain Short Term Goal (STG) pt will not show radiating pain with slump test and sciatic nerve glide ex. STG Duration 5 weeks Group Home Goal (LTG) pt will show improve neural flexibility so she will not experience any radiating pain anymore LTG Duration 10 weeks Owestry Impairment pt scores 26 on Owestry Short Term Goal (STG) pt will show improved mobility and strength to score <20 on Owestry STG Duration 5 weeks Institutional Nutrition Consultant Goal (LTG) pt will show improved mobility and strength to score <15 on Owestry LTG Duration 10 weeks Assessment Summary Assessment pt reports less stiffness and improved mobility. Tx focused on R knee ROM and low impact strengthening ex and she zulema session very well. Physical Therapy Plan Frequency and Duration Frequency of Treatment 1-2x/wk Duration of Treatment 10 weeks Plan of Care Start Date 01/02/21 Plan of Care End Date 03/23/21 Therapeutic Interventions Therapeutic Interventions Aquatic Therapy,Balance Training,Gait Training,Home Exercise Program,Joint Mobilizations,Manual Therapy, Neuromuscular Re-education, Patient/Caregiver Education, Self-Care/Home Management,Soft Tissue Mobilization,Taping, Therapeutic Activities, Therapeutic Exercises Modalities Cold Pack/Ice Massage,Electric Stimulation,Hot Packs, Infrared Therapy,Traction- Mechanical,Ultrasound Next Visit Focus/Plan Next Note Type Treatment Note Next Visit Plan review jusole nerve glide knee to chest
--- NOTE | 2021-02-04 16:11 | PT.OTN ---
Current Diagnoses Spondylosis without myelopathy or radiculopathy, lumbar region (02/04/21) Radiculopathy, lumbar region (02/04/21) Physical Therapy Treatment Note PT-OP-A Visit Information Start: 01/05/21 07:59 Freq: Status: Active Protocol: Document 02/04/21 15:18 HH (Rec: 02/04/21 16:11 [id number]) Out-Patient Physical Therapy Visit Information Visit Information Visit Type Treatment Note Visit Start Time 15:19 Visit Stop Time 16:00 Total Visit Minutes 41 Visit Number 01/10 Number of HEAD GOLF COACH Visits 0 PT-OP-B Current Condition Start: 01/05/21 07:59 Freq: Status: Active Protocol: Document 01/02/21 15:15 HH (Rec: 01/05/21 08:04 [email or web address]) Current Condition History of Current Condition Onset Date >2 years ago Current Complaints chronic LBP, radiating R posterior leg pain, difficulty with acitvitiy. History of Current Condition Danette is a 70 yo female here for her chronic LBP with radiating R posterior leg pain started 2 years ago. LBP= 3, R posterior leg pain =4 which mostly gets worse with activity. Walking a couple miles tends to aggravate her pain badly the next day. Recovering from a bend over position/ sit <>stand also bother her. She also noticed she has been putting more weight on L LE while ambulating as well. Pt had X- ray at her lumbar in 2018 which shows multilevel degenerative disc disease, multilevel facet arthropathy and L5-S1 disc annulus fissure . She attempted a course of PT at [facility] but she stated it only helps mangaging her symptoms slightly. She recalled she mostly did core stabilization exercises there. Prior Treatments and Tests 06/07/2019 lumbar x-ray 1. Multilevel degenerative disc disease. 2. Multilevel facet arthropathy. 3. No central stenosis. 4. No neural foraminal narrowing. 5. No neural compression. 6. L5-S1 disc annulus fissure Personal Factors Other Personal Factors That May Effect depression Therapy/Recovery PT-OP-C Subjective Start: 01/05/21 07:59 Freq: Status: Active Protocol: Document 02/04/21 15:18 HH (Rec: 02/04/21 16:11 [id number]) OP-PT Subjective Patient Comments Patient Comments My knee is doing pretty good. I have less pain and i can get up from sitting/ laying down position without hurting much like before Patient Reported Progress Improving PT-OP-F Manual Assessment Start: 01/05/21 07:59 Freq: Status: Active Protocol: Document 01/02/21 15:15 HH (Rec: 01/07/21 12:18 HH [email or web address]) Manual Assessments Soft Tissue Assessment Soft Tissue Mobility Assessment hypertonicity at SIJ region and R glute max and pirformis. PT-OP-G Mobility & Gait Start: 01/05/21 07:59 Freq: Status: Active Protocol: Document 01/02/21 15:15 HH (Rec: 01/07/21 12:18 HH [email or web address]) OP Gait Assessment Comments Gait Comments dec stance phase on RLE, mild trendelenburg sign with L hip drop during R stance phase. Stair Climbing Evaluation Comments Stair Climbing Comments step over pattern with 1UE support to ascend ; step to pattern with 1 UE support to descend PT-OP-H Neuro Start: 01/05/21 07:59 Freq: Status: Active Protocol: Document 01/02/21 15:15 HH (Rec: 01/07/21 12:18 HH [email or web address]) Sensation Evaluation Gross Sensation Gross Sensation WNL Deep Tendon Reflex & Clonus Assessment Deep Tendon Reflex Bilateral Achilles Deep Tendon Reflex 2+ Normal Bilateral Patellar Deep Tendon Reflex 2+ Normal PT-OP-K Range of Motion Start: 01/05/21 07:59 Freq: Status: Active Protocol: Document 01/16/21 09:41 HH (Rec: 01/16/21 11:26 HH [id number]) Knee Goniometric Range of Motion Knee Left Knee ROM WFL Yes Patient Position Supine Flexion Active (degrees) 135 Hyper-Extension Active 3 Right Knee ROM WFL No Patient Position Supine Flexion Active (degrees) 125 Extension Active (degrees) 3 Comments pain at both end range PT-OP-L Special Tests Start: 01/05/21 07:59 Freq: Status: Active Protocol: Document 01/02/21 15:15 HH (Rec: 01/07/21 12:18 HH [email or web address]) Special Tests Lumbar Spine Special Tests R quadrant test Test Results +ve R Comments radiating calf pain Slump Test Results +ve R Comments radiating calf pain Hip Special Tests Straight Leg Raise Test Results +ve R Comments radiating calf pain PT-OP-M Strength Start: 01/05/21 07:59 Freq: Status: Active Protocol: Document 01/02/21 15:15 HH (Rec: 01/07/21 12:18 [email or web address]) Hip Strength Hip Manual Muscle Testing Right Flexion (L2) 4 Good Extension (S1) 4 Good Abduction 4- Good- Adduction 4+ Good+ Left Flexion (L2) 4+ Good+ Extension (S1) 4+ Good+ Abduction 4+ Good+ Adduction 4+ Good+ Knee Strength Knee Manual Muscle Testing Right Flexion (S2) 5 Normal Extension (L3) 5 Normal Left Flexion (S2) 5 Normal Extension (L3) 5 Normal PT-OP-Q Treatments Start: 01/05/21 07:59 Freq: Status: Active Protocol: Document 02/04/21 15:18 HH (Rec: 02/04/21 16:11 [id number]) Cardio Equipment Recumbent Bicycle Duration (Minutes) 8 Resistance 6 Seat Position 3 Other 2.8 miles Therapeutic Exercises Supine Exercises bridging Resistance with ball squeeze Reps/Minutes 3 sec hold x10 Comments for HEP Sitting Exercises knee flexion Side right Equipment Used level 3 band Reps/Minutes 10 x2 Comments for HEP LAQ Side right Equipment Used 5 lbs ankle weight Reps/Minutes 10 x2 Comments for HEP Standing Exercises hip extension Standing Exercise Name knee bent, toe neutral Side right Reps/Minutes 10 x2 Comments for HEP Manual Therapy Treatment Soft Tissue Mobilization R knee Body Location lateral knee joint line Mobilization Type Rolling,Strumming Intensity/Depth Moderate Body Position Hooklying hip adductors Body Location R Mobilization Type Myofascial Release,Sustained Pressure,Trigger Point Release Intensity/Depth Moderate Body Position Hooklying Comments tenderness noted at muscle belly PT-OP-T Assessment and Plan Start: 01/05/21 07:59 Freq: Status: Active Protocol: Document 02/04/21 15:18 HH (Rec: 02/04/21 16:11 [id number]) Physical Therapy Assessment Goals activity tolerance. Impairment unable to tolerate prolonged walking Short Term Goal (STG) pt will show improved trunk staiblization, strenght which allows her to tolerate > 1mile of walking with pain no more than 3. STG Duration 5 weeks Cutting And Splicing Supervisor Goal (LTG) pt will show improved trunk staiblization, strenght which allows her to tolerate > 3mile of walking with pain no more than 2. LTG Duration 10 weeks radiating pain Impairment pt has radiating posterior leg pain Short Term Goal (STG) pt will not show radiating pain with slump test and sciatic nerve glide ex. STG Duration 5 weeks Group Home Goal (LTG) pt will show improve neural flexibility so she will not experience any radiating pain anymore LTG Duration 10 weeks Owestry Impairment pt scores 26 on Owestry Short Term Goal (STG) pt will show improved mobility and strength to score <20 on Owestry STG Duration 5 weeks Group Home Goal (LTG) pt will show improved mobility and strength to score <15 on Owestry LTG Duration 10 weeks Assessment Summary Assessment pt is progressing but does have pain with quad set and end range knee flexion. Modified to LAQ and [place] knee flexion, added bridging with ball squeeze and hip extension to improve hip stability. Physical Therapy Plan Frequency and Duration Frequency of Treatment 1-2x/wk Duration of Treatment 10 weeks Plan of Care Start Date 01/02/21 Plan of Care End Date 03/23/21 Therapeutic Interventions Therapeutic Interventions Aquatic Therapy,Balance Training,Gait Training,Home Exercise Program,Joint Mobilizations,Manual Therapy, Neuromuscular Re-education, Patient/Caregiver Education, Self-Care/Home Management,Soft Tissue Mobilization,Taping, Therapeutic Activities, Therapeutic Exercises Modalities Cold Pack/Ice Massage,Electric Stimulation,Hot Packs, Infrared Therapy,Traction- Mechanical,Ultrasound Next Visit Focus/Plan Next Note Type Treatment Note Next Visit Plan review pirirfomisn nerve glide knee to chest
--- NOTE | 2021-02-11 15:18 | PT.OTN ---
Current Diagnoses Spondylosis without myelopathy or radiculopathy, lumbar region (02/11/21) Radiculopathy, lumbar region (02/11/21) Physical Therapy Treatment Note PT-OP-A Visit Information Start: 01/05/21 07:59 Freq: Status: Active Protocol: Document 02/11/21 14:32 HH (Rec: 02/11/21 15:18 [id number]) Out-Patient Physical Therapy Visit Information Visit Information Visit Type Treatment Note Visit Start Time 14:32 Visit Stop Time 15:15 Total Visit Minutes 43 Visit Number 02/09 Number of SHADING PAINTER Visits 0 PT-OP-B Current Condition Start: 01/05/21 07:59 Freq: Status: Active Protocol: Document 01/02/21 15:15 HH (Rec: 01/05/21 08:04 [email or web address]) Current Condition History of Current Condition Onset Date >2 years ago Current Complaints chronic LBP, radiating R posterior leg pain, difficulty with acitvitiy. History of Current Condition Danette is a 70 yo female here for her chronic LBP with radiating R posterior leg pain started 2 years ago. LBP= 3, R posterior leg pain =4 which mostly gets worse with activity. Walking a couple miles tends to aggravate her pain badly the next day. Recovering from a bend over position/ sit <>stand also bother her. She also noticed she has been putting more weight on L LE while ambulating as well. Pt had X- ray at her lumbar in 2018 which shows multilevel degenerative disc disease, multilevel facet arthropathy and L5-S1 disc annulus fissure . She attempted a course of PT at [facility] but she stated it only helps mangaging her symptoms slightly. She recalled she mostly did core stabilization exercises there. Prior Treatments and Tests 06/07/2019 lumbar x-ray 1. Multilevel degenerative disc disease. 2. Multilevel facet arthropathy. 3. No central stenosis. 4. No neural foraminal narrowing. 5. No neural compression. 6. L5-S1 disc annulus fissure Personal Factors Other Personal Factors That May Effect depression Therapy/Recovery PT-OP-C Subjective Start: 01/05/21 07:59 Freq: Status: Active Protocol: Document 02/11/21 14:32 HH (Rec: 02/11/21 15:18 [id number]) OP-PT Subjective Patient Comments Patient Comments My knee is doing pretty good without increase in discomfort . Getting up from chair is getting easier. Going uphill is still hard. Patient Reported Progress Improving PT-OP-F Manual Assessment Start: 01/05/21 07:59 Freq: Status: Active Protocol: Document 01/02/21 15:15 HH (Rec: 01/07/21 12:18 HH [email or web address]) Manual Assessments Soft Tissue Assessment Soft Tissue Mobility Assessment hypertonicity at SIJ region and R glute max and pirformis. PT-OP-G Mobility & Gait Start: 01/05/21 07:59 Freq: Status: Active Protocol: Document 01/02/21 15:15 HH (Rec: 01/07/21 12:18 HH [email or web address]) OP Gait Assessment Comments Gait Comments dec stance phase on RLE, mild trendelenburg sign with L hip drop during R stance phase. Stair Climbing Evaluation Comments Stair Climbing Comments step over pattern with 1UE support to ascend ; step to pattern with 1 UE support to descend PT-OP-H Neuro Start: 01/05/21 07:59 Freq: Status: Active Protocol: Document 01/02/21 15:15 HH (Rec: 01/07/21 12:18 HH [email or web address]) Sensation Evaluation Gross Sensation Gross Sensation WNL Deep Tendon Reflex & Clonus Assessment Deep Tendon Reflex Bilateral Achilles Deep Tendon Reflex 2+ Normal Bilateral Patellar Deep Tendon Reflex 2+ Normal PT-OP-K Range of Motion Start: 01/05/21 07:59 Freq: Status: Active Protocol: Document 01/16/21 09:41 HH (Rec: 01/16/21 11:26 HH [id number]) Knee Goniometric Range of Motion Knee Left Knee ROM WFL Yes Patient Position Supine Flexion Active (degrees) 135 Hyper-Extension Active 3 Right Knee ROM WFL No Patient Position Supine Flexion Active (degrees) 125 Extension Active (degrees) 3 Comments pain at both end range PT-OP-L Special Tests Start: 01/05/21 07:59 Freq: Status: Active Protocol: Document 01/02/21 15:15 HH (Rec: 01/07/21 12:18 HH [email or web address]) Special Tests Lumbar Spine Special Tests R quadrant test Test Results +ve R Comments radiating calf pain Slump Test Results +ve R Comments radiating calf pain Hip Special Tests Straight Leg Raise Test Results +ve R Comments radiating calf pain PT-OP-M Strength Start: 01/05/21 07:59 Freq: Status: Active Protocol: Document 01/02/21 15:15 HH (Rec: 01/07/21 12:18 HH [email or web address]) Hip Strength Hip Manual Muscle Testing Right Flexion (L2) 4 Good Extension (S1) 4 Good Abduction 4- Good- Adduction 4+ Good+ Left Flexion (L2) 4+ Good+ Extension (S1) 4+ Good+ Abduction 4+ Good+ Adduction 4+ Good+ Knee Strength Knee Manual Muscle Testing Right Flexion (S2) 5 Normal Extension (L3) 5 Normal Left Flexion (S2) 5 Normal Extension (L3) 5 Normal PT-OP-Q Treatments Start: 01/05/21 07:59 Freq: Status: Active Protocol: Document 02/11/21 14:32 HH (Rec: 02/11/21 15:18 HH [id number]) Cardio Equipment Recumbent Bicycle Duration (Minutes) 8 Resistance 6 Seat Position 3 Other 2.8 miles Gym Equipment Shuttle Recovery SL squat Resistance 37# Shuttle Recovery Platform Stable Reps/Time pressure at R knee, with ankle DF. Therapeutic Exercises Supine Exercises bridging Resistance with ball squeeze Reps/Minutes 3 sec hold x10 Comments for HEP Sitting Exercises knee flexion Side right Equipment Used level 3 band Reps/Minutes 10 x2 Comments for HEP LAQ Side right Equipment Used 5 lbs ankle weight, ball between knees Reps/Minutes 10 x2 Comments for HEP Standing Exercises step up Equipment Used 4 step, Reps/Minutes 10 x2 Comments painful with 6 step calf raises Standing Exercise Name biased with more weight on RLE Side bilateral Reps/Minutes 10 x3 Manual Therapy Treatment Soft Tissue Mobilization R knee Body Location lateral knee joint line Mobilization Type Rolling,Strumming Intensity/Depth Moderate Body Position Hooklying Comments lateral quad hip adductors Body Location R Mobilization Type Myofascial Release,Sustained Pressure,Trigger Point Release Intensity/Depth Moderate Body Position Hooklying Comments tenderness noted at muscle belly PT-OP-T Assessment and Plan Start: 01/05/21 07:59 Freq: Status: Active Protocol: Document 02/11/21 14:32 HH (Rec: 02/11/21 15:18 HH [id number]) Physical Therapy Assessment Goals activity tolerance. Impairment unable to tolerate prolonged walking Short Term Goal (STG) pt will show improved trunk staiblization, strenght which allows her to tolerate > 1mile of walking with pain no more than 3. STG Duration 5 weeks Hydroelectric Production Manager Goal (LTG) pt will show improved trunk staiblization, strenght which allows her to tolerate > 3mile of walking with pain no more than 2. LTG Duration 10 weeks radiating pain Impairment pt has radiating posterior leg pain Short Term Goal (STG) pt will not show radiating pain with slump test and sciatic nerve glide ex. STG Duration 5 weeks Jail Goal (LTG) pt will show improve neural flexibility so she will not experience any radiating pain anymore LTG Duration 10 weeks Owestry Impairment pt scores 26 on Owestry Short Term Goal (STG) pt will show improved mobility and strength to score <20 on Owestry STG Duration 5 weeks Hydroelectric Production Manager Goal (LTG) pt will show improved mobility and strength to score <15 on Owestry LTG Duration 10 weeks Assessment Summary Assessment pt shows improved overall R knee extension and flexion. Added step up approx at 4 to increase her activity tolerance in community. Physical Therapy Plan Frequency and Duration Frequency of Treatment 1-2x/wk Duration of Treatment 10 weeks Plan of Care Start Date 01/02/21 Plan of Care End Date 03/23/21 Therapeutic Interventions Therapeutic Interventions Aquatic Therapy,Balance Training,Gait Training,Home Exercise Program,Joint Mobilizations,Manual Therapy, Neuromuscular Re-education, Patient/Caregiver Education, Self-Care/Home Management,Soft Tissue Mobilization,Taping, Therapeutic Activities, Therapeutic Exercises Modalities Cold Pack/Ice Massage,Electric Stimulation,Hot Packs, Infrared Therapy,Traction- Mechanical,Ultrasound Next Visit Focus/Plan Next Note Type Treatment Note Next Visit Plan review irfomisn nerve glide knee to chest
--- NOTE | 2021-02-17 11:15 | PT.OTN ---
Current Diagnoses Spondylosis without myelopathy or radiculopathy, lumbar region (02/17/21) Radiculopathy, lumbar region (02/17/21) Physical Therapy Treatment Note PT-OP-A Visit Information Start: 01/05/21 07:59 Freq: Status: Active Protocol: Document 02/17/21 10:32 HH (Rec: 02/17/21 11:15 [id number]) Out-Patient Physical Therapy Visit Information Visit Information Visit Type Treatment Note Visit Start Time 10:33 Visit Stop Time 11:15 Total Visit Minutes 42 Visit Number 03/12 Number of UNIVERSITY PROFESSOR Visits 0 PT-OP-B Current Condition Start: 01/05/21 07:59 Freq: Status: Active Protocol: Document 01/02/21 15:15 HH (Rec: 01/05/21 08:04 [email or web address]) Current Condition History of Current Condition Onset Date >2 years ago Current Complaints chronic LBP, radiating R posterior leg pain, difficulty with acitvitiy. History of Current Condition Danette is a 70 yo female here for her chronic LBP with radiating R posterior leg pain started 2 years ago. LBP= 3, R posterior leg pain =4 which mostly gets worse with activity. Walking a couple miles tends to aggravate her pain badly the next day. Recovering from a bend over position/ sit <>stand also bother her. She also noticed she has been putting more weight on L LE while ambulating as well. Pt had X- ray at her lumbar in 2018 which shows multilevel degenerative disc disease, multilevel facet arthropathy and L5-S1 disc annulus fissure . She attempted a course of PT at [facility] but she stated it only helps mangaging her symptoms slightly. She recalled she mostly did core stabilization exercises there. Prior Treatments and Tests 06/07/2019 lumbar x-ray 1. Multilevel degenerative disc disease. 2. Multilevel facet arthropathy. 3. No central stenosis. 4. No neural foraminal narrowing. 5. No neural compression. 6. L5-S1 disc annulus fissure Personal Factors Other Personal Factors That May Effect depression Therapy/Recovery PT-OP-C Subjective Start: 01/05/21 07:59 Freq: Status: Active Protocol: Document 02/17/21 10:32 HH (Rec: 02/17/21 11:15 [id number]) OP-PT Subjective Patient Comments Patient Comments I went up/downhill this weekend and i did get sore but not painful. Jacquie doing 4-5 k steps everyday. Patient Reported Progress Improving PT-OP-F Manual Assessment Start: 01/05/21 07:59 Freq: Status: Active Protocol: Document 01/02/21 15:15 HH (Rec: 01/07/21 12:18 HH [email or web address]) Manual Assessments Soft Tissue Assessment Soft Tissue Mobility Assessment hypertonicity at SIJ region and R glute max and pirformis. PT-OP-G Mobility & Gait Start: 01/05/21 07:59 Freq: Status: Active Protocol: Document 01/02/21 15:15 HH (Rec: 01/07/21 12:18 HH [email or web address]) OP Gait Assessment Comments Gait Comments dec stance phase on RLE, mild trendelenburg sign with L hip drop during R stance phase. Stair Climbing Evaluation Comments Stair Climbing Comments step over pattern with 1UE support to ascend ; step to pattern with 1 UE support to descend PT-OP-H Neuro Start: 01/05/21 07:59 Freq: Status: Active Protocol: Document 01/02/21 15:15 HH (Rec: 01/07/21 12:18 HH [email or web address]) Sensation Evaluation Gross Sensation Gross Sensation WNL Deep Tendon Reflex & Clonus Assessment Deep Tendon Reflex Bilateral Achilles Deep Tendon Reflex 2+ Normal Bilateral Patellar Deep Tendon Reflex 2+ Normal PT-OP-K Range of Motion Start: 01/05/21 07:59 Freq: Status: Active Protocol: Document 01/16/21 09:41 HH (Rec: 01/16/21 11:26 HH [id number]) Knee Goniometric Range of Motion Knee Left Knee ROM WFL Yes Patient Position Supine Flexion Active (degrees) 135 Hyper-Extension Active 3 Right Knee ROM WFL No Patient Position Supine Flexion Active (degrees) 125 Extension Active (degrees) 3 Comments pain at both end range PT-OP-L Special Tests Start: 01/05/21 07:59 Freq: Status: Active Protocol: Document 01/02/21 15:15 HH (Rec: 01/07/21 12:18 HH [email or web address]) Special Tests Lumbar Spine Special Tests R quadrant test Test Results +ve R Comments radiating calf pain Slump Test Results +ve R Comments radiating calf pain Hip Special Tests Straight Leg Raise Test Results +ve R Comments radiating calf pain PT-OP-M Strength Start: 01/05/21 07:59 Freq: Status: Active Protocol: Document 01/02/21 15:15 HH (Rec: 01/07/21 12:18 [email or web address]) Hip Strength Hip Manual Muscle Testing Right Flexion (L2) 4 Good Extension (S1) 4 Good Abduction 4- Good- Adduction 4+ Good+ Left Flexion (L2) 4+ Good+ Extension (S1) 4+ Good+ Abduction 4+ Good+ Adduction 4+ Good+ Knee Strength Knee Manual Muscle Testing Right Flexion (S2) 5 Normal Extension (L3) 5 Normal Left Flexion (S2) 5 Normal Extension (L3) 5 Normal PT-OP-Q Treatments Start: 01/05/21 07:59 Freq: Status: Active Protocol: Document 02/17/21 10:32 HH (Rec: 02/17/21 11:15 [id number]) Cardio Equipment Recumbent Bicycle Duration (Minutes) 8 Resistance 6 Seat Position 3 Other 2.8 miles Gym Equipment Shuttle Recovery SL squat Details 15 x2 Resistance 37# Shuttle Recovery Platform Stable Reps/Time pressure at R knee, with ankle DF. Therapeutic Exercises Standing Exercises SLS Standing Exercise Name on blue foam Side bilateral Comments L= WFL, R= need finger touch support on bar step up Equipment Used 4 step, Reps/Minutes 10 x2 Comments painful with 6 step calf raises Standing Exercise Name biased with more weight on RLE Side bilateral Reps/Minutes 10 x3 PT-OP-T Assessment and Plan Start: 01/05/21 07:59 Freq: Status: Active Protocol: Document 02/17/21 10:32 HH (Rec: 02/17/21 11:15 [id number]) Physical Therapy Assessment Goals activity tolerance. Impairment unable to tolerate prolonged walking Short Term Goal (STG) pt will show improved trunk staiblization, strenght which allows her to tolerate > 1mile of walking with pain no more than 3. STG Duration 5 weeks Data Entry Associate Goal (LTG) pt will show improved trunk staiblization, strenght which allows her to tolerate > 3mile of walking with pain no more than 2. LTG Duration 10 weeks radiating pain Impairment pt has radiating posterior leg pain Short Term Goal (STG) pt will not show radiating pain with slump test and sciatic nerve glide ex. STG Duration 5 weeks Snf Goal (LTG) pt will show improve neural flexibility so she will not experience any radiating pain anymore LTG Duration 10 weeks Owestry Impairment pt scores 26 on Owestry Short Term Goal (STG) pt will show improved mobility and strength to score <20 on Owestry STG Duration 5 weeks Data Entry Associate Goal (LTG) pt will show improved mobility and strength to score <15 on Owestry LTG Duration 10 weeks Assessment Summary Assessment Pt reports she is not having much pain but soreness only for most days. Her next appt will be in 2.5 weeks. Will f/u with her Physical Therapy Plan Frequency and Duration Frequency of Treatment 1-2x/wk Duration of Treatment 10 weeks Plan of Care Start Date 01/02/21 Plan of Care End Date 03/23/21 Therapeutic Interventions Therapeutic Interventions Aquatic Therapy,Balance Training,Gait Training,Home Exercise Program,Joint Mobilizations,Manual Therapy, Neuromuscular Re-education, Patient/Caregiver Education, Self-Care/Home Management,Soft Tissue Mobilization,Taping, Therapeutic Activities, Therapeutic Exercises Modalities Cold Pack/Ice Massage,Electric Stimulation,Hot Packs, Infrared Therapy,Traction- Mechanical,Ultrasound Next Visit Focus/Plan Next Note Type Treatment Note Next Visit Plan review pirirfomisn nerve glide knee to chest
--- NOTE | 2021-03-11 09:02 | PT.OTN ---
Current Diagnoses Spondylosis without myelopathy or radiculopathy, lumbar region (03/11/21) Radiculopathy, lumbar region (03/11/21) Physical Therapy Treatment Note PT-OP-A Visit Information Start: 01/05/21 07:59 Freq: Status: Active Protocol: Document 03/11/21 08:14 HH (Rec: 03/11/21 09:01 [id number]) Out-Patient Physical Therapy Visit Information Visit Information Visit Type Treatment Note Visit Start Time 08:18 Visit Stop Time 09:00 Total Visit Minutes 42 Visit Number 04/12 Number of FILLER SPREADER Visits 0 PT-OP-B Current Condition Start: 01/05/21 07:59 Freq: Status: Active Protocol: Document 01/02/21 15:15 HH (Rec: 01/05/21 08:04 [email or web address]) Current Condition History of Current Condition Onset Date >2 years ago Current Complaints chronic LBP, radiating R posterior leg pain, difficulty with acitvitiy. History of Current Condition Danette is a 70 yo female here for her chronic LBP with radiating R posterior leg pain started 2 years ago. LBP= 3, R posterior leg pain =4 which mostly gets worse with activity. Walking a couple miles tends to aggravate her pain badly the next day. Recovering from a bend over position/ sit <>stand also bother her. She also noticed she has been putting more weight on L LE while ambulating as well. Pt had X- ray at her lumbar in 2018 which shows multilevel degenerative disc disease, multilevel facet arthropathy and L5-S1 disc annulus fissure . She attempted a course of PT at [facility] but she stated it only helps mangaging her symptoms slightly. She recalled she mostly did core stabilization exercises there. Prior Treatments and Tests 06/07/2019 lumbar x-ray 1. Multilevel degenerative disc disease. 2. Multilevel facet arthropathy. 3. No central stenosis. 4. No neural foraminal narrowing. 5. No neural compression. 6. L5-S1 disc annulus fissure Personal Factors Other Personal Factors That May Effect depression Therapy/Recovery PT-OP-C Subjective Start: 01/05/21 07:59 Freq: Status: Active Protocol: Document 03/11/21 08:14 HH (Rec: 03/11/21 09:01 [id number]) OP-PT Subjective Patient Comments Patient Comments My knee is doing pretty good so far, especially after sitting for a long time. I dont limp as much after sitting now. I can climb stairs one at a time now as well. Patient Reported Progress Improving PT-OP-F Manual Assessment Start: 01/05/21 07:59 Freq: Status: Active Protocol: Document 01/02/21 15:15 HH (Rec: 01/07/21 12:18 HH [email or web address]) Manual Assessments Soft Tissue Assessment Soft Tissue Mobility Assessment hypertonicity at SIJ region and R glute max and pirformis. PT-OP-G Mobility & Gait Start: 01/05/21 07:59 Freq: Status: Active Protocol: Document 01/02/21 15:15 HH (Rec: 01/07/21 12:18 HH [email or web address]) OP Gait Assessment Comments Gait Comments dec stance phase on RLE, mild trendelenburg sign with L hip drop during R stance phase. Stair Climbing Evaluation Comments Stair Climbing Comments step over pattern with 1UE support to ascend ; step to pattern with 1 UE support to descend PT-OP-H Neuro Start: 01/05/21 07:59 Freq: Status: Active Protocol: Document 01/02/21 15:15 HH (Rec: 01/07/21 12:18 HH [email or web address]) Sensation Evaluation Gross Sensation Gross Sensation WNL Deep Tendon Reflex & Clonus Assessment Deep Tendon Reflex Bilateral Achilles Deep Tendon Reflex 2+ Normal Bilateral Patellar Deep Tendon Reflex 2+ Normal PT-OP-K Range of Motion Start: 01/05/21 07:59 Freq: Status: Active Protocol: Document 01/16/21 09:41 HH (Rec: 01/16/21 11:26 HH [id number]) Knee Goniometric Range of Motion Knee Left Knee ROM WFL Yes Patient Position Supine Flexion Active (degrees) 135 Hyper-Extension Active 3 Right Knee ROM WFL No Patient Position Supine Flexion Active (degrees) 125 Extension Active (degrees) 3 Comments pain at both end range PT-OP-L Special Tests Start: 01/05/21 07:59 Freq: Status: Active Protocol: Document 01/02/21 15:15 HH (Rec: 01/07/21 12:18 HH [email or web address]) Special Tests Lumbar Spine Special Tests R quadrant test Test Results +ve R Comments radiating calf pain Slump Test Results +ve R Comments radiating calf pain Hip Special Tests Straight Leg Raise Test Results +ve R Comments radiating calf pain PT-OP-M Strength Start: 01/05/21 07:59 Freq: Status: Active Protocol: Document 01/02/21 15:15 HH (Rec: 01/07/21 12:18 [email or web address]) Hip Strength Hip Manual Muscle Testing Right Flexion (L2) 4 Good Extension (S1) 4 Good Abduction 4- Good- Adduction 4+ Good+ Left Flexion (L2) 4+ Good+ Extension (S1) 4+ Good+ Abduction 4+ Good+ Adduction 4+ Good+ Knee Strength Knee Manual Muscle Testing Right Flexion (S2) 5 Normal Extension (L3) 5 Normal Left Flexion (S2) 5 Normal Extension (L3) 5 Normal PT-OP-Q Treatments Start: 01/05/21 07:59 Freq: Status: Active Protocol: Document 03/11/21 08:14 HH (Rec: 03/11/21 09:01 [id number]) Cardio Equipment Recumbent Bicycle Duration (Minutes) 8 Resistance 6 Seat Position 3 Other 2.8 miles Gym Equipment Shuttle Recovery SL squat Details 15 x2 Resistance 37# Shuttle Recovery Platform Stable Reps/Time pressure at R knee, with ankle DF. Therapeutic Exercises Supine Exercises bridging Resistance with ball squeeze Reps/Minutes 15 x 2 Comments for HEP Sitting Exercises LAQ Side right Equipment Used 5 lbs ankle weight, ball between knees Reps/Minutes 10 x2 Comments for HEP Standing Exercises crab walk Resistance yellow band Reps/Minutes 20 ft x 5 Comments for HEP step up Equipment Used 6 step Reps/Minutes 10 x3 calf raises Standing Exercise Name biased with more weight on RLE Side bilateral Reps/Minutes 10 x3 PT-OP-T Assessment and Plan Start: 01/05/21 07:59 Freq: Status: Active Protocol: Document 03/11/21 08:14 HH (Rec: 03/11/21 09:01 [id number]) Physical Therapy Assessment Goals activity tolerance. Impairment unable to tolerate prolonged walking Short Term Goal (STG) pt will show improved trunk staiblization, strenght which allows her to tolerate > 1mile of walking with pain no more than 3. STG Duration 5 weeks Nursing Home Goal (LTG) pt will show improved trunk staiblization, strenght which allows her to tolerate > 3mile of walking with pain no more than 2. LTG Duration 10 weeks radiating pain Impairment pt has radiating posterior leg pain Short Term Goal (STG) pt will not show radiating pain with slump test and sciatic nerve glide ex. STG Duration 5 weeks Invoicing Machine Operator Goal (LTG) pt will show improve neural flexibility so she will not experience any radiating pain anymore LTG Duration 10 weeks Owestry Impairment pt scores 26 on Owestry Short Term Goal (STG) pt will show improved mobility and strength to score <20 on Owestry STG Duration 5 weeks Invoicing Machine Operator Goal (LTG) pt will show improved mobility and strength to score <15 on Owestry LTG Duration 10 weeks Assessment Summary Assessment pt reports decreased discomfort to walk after sitting for a long time, she is also able to climb stairs with step over pattern. This session focused on close chain single leg stability therex and pt zulema session well. Added crab walk for HEP today to increase her frontal plance stability. Possible DC next visit. Physical Therapy Plan Frequency and Duration Frequency of Treatment 1-2x/wk Duration of Treatment 10 weeks Plan of Care Start Date 01/02/21 Plan of Care End Date 03/23/21 Therapeutic Interventions Therapeutic Interventions Aquatic Therapy,Balance Training,Gait Training,Home Exercise Program,Joint Mobilizations,Manual Therapy, Neuromuscular Re-education, Patient/Caregiver Education, Self-Care/Home Management,Soft Tissue Mobilization,Taping, Therapeutic Activities, Therapeutic Exercises Modalities Cold Pack/Ice Massage,Electric Stimulation,Hot Packs, Infrared Therapy,Traction- Mechanical,Ultrasound Next Visit Focus/Plan Next Note Type Treatment Note Next Visit Plan review pirirfomisn nerve glide knee to chest
--- NOTE | 2021-03-19 10:39 | PT.OTN ---
Current Diagnoses Spondylosis without myelopathy or radiculopathy, lumbar region (03/19/21) Radiculopathy, lumbar region (03/19/21) Physical Therapy Treatment Note PT-OP-A Visit Information Start: 01/05/21 07:59 Freq: Status: Active Protocol: Document 03/19/21 09:37 HH (Rec: 03/19/21 10:39 [id number]) Out-Patient Physical Therapy Visit Information Visit Information Visit Type Progress Note Visit Start Time 09:45 Visit Stop Time 10:30 Total Visit Minutes 45 Visit Number 05/12 Number of ADULT MANAGER Visits 0 PT-OP-B Current Condition Start: 01/05/21 07:59 Freq: Status: Active Protocol: Document 01/02/21 15:15 HH (Rec: 01/05/21 08:04 HH [email or web address]) Current Condition History of Current Condition Onset Date >2 years ago Current Complaints chronic LBP, radiating R posterior leg pain, difficulty with acitvitiy. History of Current Condition Danette is a 70 yo female here for her chronic LBP with radiating R posterior leg pain started 2 years ago. LBP= 3, R posterior leg pain =4 which mostly gets worse with activity. Walking a couple miles tends to aggravate her pain badly the next day. Recovering from a bend over position/ sit <>stand also bother her. She also noticed she has been putting more weight on L LE while ambulating as well. Pt had X- ray at her lumbar in 2018 which shows multilevel degenerative disc disease, multilevel facet arthropathy and L5-S1 disc annulus fissure . She attempted a course of PT at [facility] but she stated it only helps mangaging her symptoms slightly. She recalled she mostly did core stabilization exercises there. Prior Treatments and Tests 06/07/2019 lumbar x-ray 1. Multilevel degenerative disc disease. 2. Multilevel facet arthropathy. 3. No central stenosis. 4. No neural foraminal narrowing. 5. No neural compression. 6. L5-S1 disc annulus fissure Personal Factors Other Personal Factors That May Effect depression Therapy/Recovery PT-OP-C Subjective Start: 01/05/21 07:59 Freq: Status: Active Protocol: Document 03/19/21 09:37 HH (Rec: 03/19/21 10:39 [id number]) OP-PT Subjective Patient Comments Patient Comments I started hurting at the back of my R knee 2 days ago. And i havent had it for awhile and i dont know why. Patient Reported Progress Same PT-OP-F Manual Assessment Start: 01/05/21 07:59 Freq: Status: Active Protocol: Document 01/02/21 15:15 HH (Rec: 01/07/21 12:18 HH [email or web address]) Manual Assessments Soft Tissue Assessment Soft Tissue Mobility Assessment hypertonicity at SIJ region and R glute max and pirformis. PT-OP-G Mobility & Gait Start: 01/05/21 07:59 Freq: Status: Active Protocol: Document 01/02/21 15:15 HH (Rec: 01/07/21 12:18 HH [email or web address]) OP Gait Assessment Comments Gait Comments dec stance phase on RLE, mild trendelenburg sign with L hip drop during R stance phase. Stair Climbing Evaluation Comments Stair Climbing Comments step over pattern with 1UE support to ascend ; step to pattern with 1 UE support to descend PT-OP-H Neuro Start: 01/05/21 07:59 Freq: Status: Active Protocol: Document 01/02/21 15:15 HH (Rec: 01/07/21 12:18 HH [email or web address]) Sensation Evaluation Gross Sensation Gross Sensation WNL Deep Tendon Reflex & Clonus Assessment Deep Tendon Reflex Bilateral Achilles Deep Tendon Reflex 2+ Normal Bilateral Patellar Deep Tendon Reflex 2+ Normal PT-OP-K Range of Motion Start: 01/05/21 07:59 Freq: Status: Active Protocol: Document 01/16/21 09:41 HH (Rec: 01/16/21 11:26 HH [id number]) Knee Goniometric Range of Motion Knee Left Knee ROM WFL Yes Patient Position Supine Flexion Active (degrees) 135 Hyper-Extension Active 3 Right Knee ROM WFL No Patient Position Supine Flexion Active (degrees) 125 Extension Active (degrees) 3 Comments pain at both end range PT-OP-L Special Tests Start: 01/05/21 07:59 Freq: Status: Active Protocol: Document 01/02/21 15:15 HH (Rec: 01/07/21 12:18 HH [email or web address]) Special Tests Lumbar Spine Special Tests R quadrant test Test Results +ve R Comments radiating calf pain Slump Test Results +ve R Comments radiating calf pain Hip Special Tests Straight Leg Raise Test Results +ve R Comments radiating calf pain PT-OP-M Strength Start: 01/05/21 07:59 Freq: Status: Active Protocol: Document 01/02/21 15:15 HH (Rec: 01/07/21 12:18 HH [email or web address]) Hip Strength Hip Manual Muscle Testing Right Flexion (L2) 4 Good Extension (S1) 4 Good Abduction 4- Good- Adduction 4+ Good+ Left Flexion (L2) 4+ Good+ Extension (S1) 4+ Good+ Abduction 4+ Good+ Adduction 4+ Good+ Knee Strength Knee Manual Muscle Testing Right Flexion (S2) 5 Normal Extension (L3) 5 Normal Left Flexion (S2) 5 Normal Extension (L3) 5 Normal PT-OP-Q Treatments Start: 01/05/21 07:59 Freq: Status: Active Protocol: Document 03/19/21 09:37 HH (Rec: 03/19/21 10:39 [id number]) Gym Equipment Shuttle Recovery SL squat Details 15 x2 Resistance 37# Shuttle Recovery Platform Stable Reps/Time pressure at R knee, with ankle DF. Therapeutic Exercises Sitting Exercises ankle eversion Resistance level 2 Standing Exercises calf stretch Side right Manual Therapy Treatment Soft Tissue Mobilization ankle Body Location ant tib and medial calf Mobilization Type Myofascial Release,Sustained Pressure,Trigger Point Release Intensity/Depth Moderate Body Position Standing Joint Mobilizations calcanues Direction eversion Body Position Supine Reps/Duration 10 mins PT-OP-T Assessment and Plan Start: 01/05/21 07:59 Freq: Status: Active Protocol: Document 03/19/21 09:37 HH (Rec: 03/19/21 10:39 [id number]) Physical Therapy Assessment Goals activity tolerance. Impairment unable to tolerate prolonged walking Short Term Goal (STG) pt will show improved trunk staiblization, strenght which allows her to tolerate > 1mile of walking with pain no more than 3. STG Duration 5 weeks Design Technology Professor Goal (LTG) 03/19 goal met pt was able to zulema up to 4000- 6000 steps (2-3 miles) a day without much discomfort. pt will show improved trunk staiblization, strenght which allows her to tolerate > 3mile of walking with pain no more than 2. LTG Duration 10 weeks radiating pain Impairment pt has radiating posterior leg pain Short Term Goal (STG) pt will not show radiating pain with slump test and sciatic nerve glide ex. STG Duration 5 weeks Assisted Goal (LTG) 03/19 goal met pt will show improve neural flexibility so she will not experience any radiating pain anymore LTG Duration 10 weeks Owestry Impairment pt scores 26 on Owestry Short Term Goal (STG) pt will show improved mobility and strength to score <20 on Owestry STG Duration 5 weeks Design Technology Professor Goal (LTG) 03/19 (goal met) pt scores 10 on Owestry pt will show improved mobility and strength to score <15 on Owestry LTG Duration 10 weeks Assessment Summary Assessment pt has shown good progress with reduce pain and increase in activity tolerance. However , she has a flare up a few days ago. Ankle assessment today shows pt has very limited ankle DF and eversion who tends to heel strike on her lateral border of the ankle which increeases mechanical stress at lateral knee. Her pain immediately went away after ankle mobilization. Added ankle eversion and DF to HEP. Will check on pt via phone in 3 weeks and possible DC from there. Physical Therapy Plan Frequency and Duration Frequency of Treatment 1-2x/wk Duration of Treatment 10 weeks Plan of Care Start Date 01/02/21 Plan of Care End Date 03/23/21 Therapeutic Interventions Therapeutic Interventions Aquatic Therapy,Balance Training,Gait Training,Home Exercise Program,Joint Mobilizations,Manual Therapy, Neuromuscular Re-education, Patient/Caregiver Education, Self-Care/Home Management,Soft Tissue Mobilization,Taping, Therapeutic Activities, Therapeutic Exercises Modalities Cold Pack/Ice Massage,Electric Stimulation,Hot Packs, Infrared Therapy,Traction- Mechanical,Ultrasound Next Visit Focus/Plan Next Note Type Treatment Note Next Visit Plan review pirirfomisn nerve glide knee to chest
--- NOTE | 2021-04-16 11:47 | PT.OPDS ---
Current Diagnoses Spondylosis without myelopathy or radiculopathy, lumbar region (03/19/21) Radiculopathy, lumbar region (03/19/21) Visit Care Team Role Provider Type Kateryna Courtney PA-C Primary Care Provider Non-Staff Specialty: Medical Address: [address] [place] [address] [address], [place], [address] Email: Ruben Wilks MD Attending Provider Physician Referring Provider Specialty: Orthopedics Address: [address] [place] [address], [id number] Email: [email or web address] Visit Number Visit Number 05/12 Discharge Summary PT-OP-T Assessment and Plan Start: 01/05/21 07:59 Freq: Status: Active Protocol: Document 04/16/21 11:46 (Rec: 04/16/21 11:47 [email or web address]) Physical Therapy Plan Discharge Physical Therapy Discharge Reasons Goals Met Discharge Comments Per EMR, pt has shown progress with good understanding of her HEP and POC. DC Pt from PT today
== END 2021-04-16 13:20 | disposition home or self-care (01) ==
LOC: PHYS 09:45
PROVIDERS: PCP Physician Assistant Medical; Referring Provider Physical Medicine & Rehabilitation; Visit Provider Physical Medicine & Rehabilitation
DX: M54.16 Radiculopathy, lumbar region (principal); M47.816 Spondylosis without myelopathy or radiculopathy, lumbar region
CPT/HCPCS: 97110; 97140; 97161

== ENCOUNTER → 2022-06-03 10:50 | Outpatient (CLI) | payer MEDICARE, BC, OTHER, SELFPAY ==
--- NOTE | 2022-06-03 | DI.MRI.S_ITS ---
PROCEDURE: MR LUMBAR SPINE WO CON INDICATIONS: LUMBAR RADICULOPATHY TECHNIQUE: Noncontrast sagittal T1 spin echo and T2 fast echo, sagittal STIR, and T2 fast spin echo through the lumbar spine. In cases with scoliosis, additional coronal T2 fast spin echo may be performed. COMPARISON: [facility], MR, MR LUMBAR SPINE WO CON, 06/06/2019, 18:22. FINDINGS: Image quality: Excellent. Alignment and Curvature: There is normal bony alignment. Bone Marrow: Marrow is of normal overall signal. No acute vertebral body compression fractures. Spinal Cord: Conus medullaris terminates at the L1 level. Visualized cord demonstrates normal signal and size. Paraspinous Soft Tissues: No paravertebral masses. Discs: Mild multilevel disc desiccation is present most notable at L5-S1. T12-L1: Mild disc bulge, without spinal stenosis or foraminal narrowing. No interval change. L1-L2: No disc bulge, spinal stenosis or foraminal narrowing. No interval change. L2-L3: No disc bulge, spinal stenosis or foraminal narrowing. No interval change. L3-L4: Mild disc bulge without spinal stenosis or foraminal narrowing. Mild facet and ligamentum flavum hypertrophy. Minimal epidural lipomatosis. No interval change. L4-L5: Mild disc bulge without spinal stenosis. Minimal left foraminal narrowing. Facet and ligamentum flavum hypertrophy are present. No interval change. L5-S1: Mild disc bulge without spinal stenosis. Minimal bilateral foraminal narrowing with facet hypertrophy. No interval change. Increased T2 signal is present within the disc posteriorly suggestive of posterior annulus. IMPRESSION: Multilevel degenerative changes overall stable compared to prior exam. No spinal stenosis. Minimal scattered foraminal narrowing most notable at L4-5 and L5-S1. Dictated by: Devorah Sutherland M.D. on 06/03/2022 at 14:07 Approved by: Devorah Sutherland M.D. on 06/03/2022 at 14:17
== END ==
PROVIDERS: PCP Physician Assistant Medical; Referring Provider Physical Medicine & Rehabilitation; Visit Provider Physical Medicine & Rehabilitation
DX: M47.26 Other spondylosis with radiculopathy, lumbar region (principal)
CPT/HCPCS: 72148

== ENCOUNTER → 2022-11-26 11:48 | Outpatient (CLI) | payer MEDICARE, BC, OTHER, SELFPAY ==
[2022-11-26 14:23] LABS: Add Manual Diff / Slide Review NO; Basophils Absolute Auto 100 /uL (0-100); Basophils Percent Auto 0.7 % (0-2); Eosinophils Absolute Auto 100 /uL (0-450); Eosinophils Percent Auto 1.3 % (2-4); Hematocrit 39.6 % (36-46); Hemoglobin 13.4 g/dL (12.0-16.0); Lymphocytes Absolute Auto 1800 /uL (1100-4500); Lymphocytes Percent Auto 24.3 % (25-40); Mean Corpuscular HGB Conc 33.9 % (30-36); Mean Corpuscular Hemoglobin 30.7 PG (26-34); Mean Corpuscular Volume 90.5 fL (80-100); Monocytes Absolute Auto 400 /uL (0-900); Monocytes Percent Auto 5.4 % (3-14); Neutrophils Absolute Auto 5000 /uL (1500-7000); Neutrophils Percent Auto 68.3 % (50-75); Platelet Count 229 X10^3/uL (150-400); Red Blood Cell Count 4.38 X10^6/uL (4.0-5.2); Red Cell Distribution Width 12.6 % (11.6-14.8); White Blood Cell Count 7.4 X10^3/uL (4.5-11.0)
[2022-11-26 14:40] LABS: BUN Creatinine Ratio 31.3 (6-22); Blood Urea Nitrogen 20 mg/dL (7-17); Calcium 9.1 mg/dL (8.4-10.2); Carbon Dioxide 29 mmol/L (22-32); Chloride 101 mmol/L (98-107); Estimated Glomerular Filt Rate > 60 mL/min (>60); Glucose 87 mg/dL (80-110); HEMOLYSIS < 15 (0-50); Potassium 4.4 mmol/L (3.4-5.1); Sodium 136 mmol/L (137-145)
[2022-11-29 03:29] LABS: Labcorp Hemoglobin (Hb) A1c 5.2 % (4.8-5.6)
== END ==
PROVIDERS: PCP Physician Assistant Medical; Referring Provider Orthopaedic Surgery Foot and Ankle Surgery; Visit Provider Orthopaedic Surgery Foot and Ankle Surgery
DX: Z01.818 Encounter for other preprocedural examination (principal); R73.9 Hyperglycemia, unspecified; Z01.812 Encounter for preprocedural laboratory examination
CPT/HCPCS: 36415; 80048; 83036; 85025; 93005

== ENCOUNTER → 2024-12-21 11:14 | Outpatient (CLI) | payer MEDICARE, OTHER, SELFPAY ==
[2024-12-21 11:45] LABS: Add Manual Diff / Slide Review NO; Basophils Absolute Auto 0 /uL (0-100); Basophils Percent Auto 0.9 % (0-2); Eosinophils Absolute Auto 100 /uL (0-450); Eosinophils Percent Auto 1.7 % (2-4); Hematocrit 39.1 % (36-46); Hemoglobin 13.5 g/dL (12.0-16.0); Lymphocytes Absolute Auto 1900 /uL (1100-4500); Lymphocytes Percent Auto 34.2 % (25-40); Mean Corpuscular HGB Conc 34.6 % (30-36); Mean Corpuscular Hemoglobin 31.6 PG (26-34); Mean Corpuscular Volume 91.5 fL (80-100); Monocytes Absolute Auto 400 /uL (0-900); Monocytes Percent Auto 7.7 % (3-14); Neutrophils Absolute Auto 3000 /uL (1500-7000); Neutrophils Percent Auto 55.5 % (50-75); Platelet Count 229 X10^3/uL (150-400); Red Blood Cell Count 4.27 X10^6/uL (4.0-5.2); Red Cell Distribution Width 12.8 % (11.6-14.8); White Blood Cell Count 5.5 X10^3/uL (4.5-11.0)
--- NOTE | 2024-12-21 11:53 | EKG_ITS ---
[address] [address] Test Date: 2024-12-21 Pat Name: Danette Michelle Department: [facility] Room: Gender: Female Pastor: MICHAEL : 1950 Requested By: Order Number: [id number] Reading MD: Aiden Wright Measurements Intervals [place] Rate: 53 P: 13 NE: 170 QRS: -14 QRSD: 88 T: 6 QT: 414 QTc: 388 Interpretive Statements Sinus bradycardia with sinus arrhythmia Electronically Signed On 12-22-2024 16:24:16 PDT by Aiden Wright
[2024-12-21 12:18] LABS: BUN Creatinine Ratio 28.1 (6-22); Blood Urea Nitrogen 18 mg/dL (7-17); Calcium 9.5 mg/dL (8.4-10.2); Carbon Dioxide 27 mmol/L (22-32); Chloride 101 mmol/L (98-107); Estimated Glomerular Filt Rate > 60 mL/min (>60); Glucose 68 mg/dL (70-99); HEMOLYSIS < 15 (0-50); Potassium 4.3 mmol/L (3.4-5.1); Sodium 135 mmol/L (137-145)
== END ==
PROVIDERS: PCP Physician Assistant Medical; Referring Provider Physician Assistant Medical; Visit Provider Orthopaedic Surgery Foot and Ankle Surgery
DX: Z01.818 Encounter for other preprocedural examination (principal); Z01.812 Encounter for preprocedural laboratory examination
CPT/HCPCS: 36415; 80048; 85025; 93005